=== PATIENT | female | born 1975 | race Caucasian/White ===

== ENCOUNTER 2016-04-09 11:27 | Emergency (ER) | payer OTHER ==
[2016-04-09 11:39] VITALS: BP 139/81
--- NOTE | 2016-04-09 12:22 | ERNOTE ---
Integumentary HPI - Narrative Date of Service: 04/09/16 - General Presenting Symptoms: abscess Time Seen by Provider: 04/09/16 12:03 Source: patient, family, RN notes reviewed Exam Limitations: no limitations - Immun/Allergies/Home Medications Immunizations: IMMUNIZATION HX Immunizations Up to Date Yes Allergies/Adverse Reactions: Allergies Allergy/AdvReac Type Severity Reaction Status Date / Time ciprofloxacin [From Cipro] Allergy Verified 04/09/16 11:43 ciprofloxacin HCl Allergy Verified 04/09/16 11:43 [From Cipro] ibuprofen Allergy Verified 04/09/16 11:43 latex Allergy Verified 04/09/16 11:43 metformin Allergy Verified 04/09/16 11:43 pantoprazole sodium Allergy Verified 04/09/16 11:43 [From Protonix] Penicillins Allergy Verified 04/09/16 11:43 Sulfa (Sulfonamide Allergy Verified 04/09/16 11:43 Antibiotics) Home Medications: HOME MEDICATIONS Albuterol Sulfate [Albuterol Sulfate 0.63 MG/3ML] 0.63 mg IH 04/09/16 [Last Taken Unknown] Amitriptyline HCl [Elavil] 25 mg PO HS 04/09/16 [Last Taken Unknown] Budesonide/Formoterol Fumarate [Symbicort 80-4.5 Mcg Inhaler] 1 puff IH DAILY [Last Taken Unknown] Gabapentin [Gralise] 600 mg PO 04/09/16 [Last Taken Unknown] Hydrochlorothiazide [Hydrodiuril] 25 mg PO DAILY 04/09/16 [Last Taken Unknown] Insulin Glargine,Hum.rec.anlog [Lantus] 30 units SC HS 04/09/16 [Last Taken Unknown] Oxycodone HCl/Acetaminophen [Percocet 5-325 mg Tablet] 1 each PO 04/09/16 [Last Taken Unknown] Potassium Chloride [Klor-Con Sprinkle] 10 meq PO DAILY 04/09/16 [Last Taken Unknown] Pregabalin [Lyrica] 75 mg PO BID 04/09/16 [Last Taken Unknown] Venlafaxine HCl [Effexor Xr] 75 mg PO 04/09/16 [Last Taken Unknown] traZODone HCL [Desyrel] 50 mg PO HS PRN 04/09/16 [Last Taken Unknown] - History of Present Illness Narrative: Laquita is a 41-year-old female that presents to the emergency Department by private vehicle for a wound to the dorsum of her right hand that she believes is an abscess. She reports falling several days ago and then noticing the wound the next day. She is concerned that it is becoming infected. She has been cleaning it every day with peroxide. She denies any fever or chills. She does have a history of MRSA. Review of Systems - Review of Systems Constitutional: Absent: fever, chills, malaise EYE: Present: no symptoms reported ENT: Present: no symptoms reported Respiratory: Present: no symptoms reported Cardiology: Present: no symptoms reported Gastrointestinal/Abdominal: Absent: nausea, vomiting Genitourinary: Present: no symptoms reported Musculoskeletal: Absent: joint pain, joint swelling Skin: Present: lesions, change in color. Absent: lumps Neurological: Absent: weakness, numbness, tingling Endocrine: Present: no symptoms reported Hematologic/Lymphatic: Present: no symptoms reported Psych: Present: no symptoms reported - Patient's Past Medical History Patient History - Medical: Anxiety, Chronic Pain, Diabetes Type 2, Depression, GERD, Seizures Patient History - Cardiac/Respiratory: Asthma, COPD, Hypertension, Myocardial Infarction Patient History - Cancer: No Hx of Cancer Patient History - Surgical Procedures: Appendectomy, Cholecystectomy, Hysterectomy, Tubal Ligation, Other - Social History Smoking Status: Current every day smoker Cigarettes Packs Per Day: 1 Have you smoked in the past 12 months: Yes - Immunizations Immunizations Up to Date: Yes Physical Exam - Physical Exam General Appearance: Present: wd/wn, alert, no apparent distress Eye Exam: Normal inspection: bilateral Respiratory: Present: no respiratory distress, normal breath sounds, no accessory muscle use, lungs clear Cardiovascular/Chest: Present: regular rate, rhythm, no murmur, normal peripheral pulses Extremity Exam: Present: no edema, normal range of motion. Absent: joint redness, joint swelling Neurological Exam: Present: alert, oriented, normal mood/affect, no motor/ sensory deficits Skin Exam: Present: normal color, warm/dry, other - small round wound to dorsum of right hand, 0.5 cm diamater with mild surrounding erythema and tenderness ED Progress - Vital Signs Patient's Vital Signs:: I have reviewed the patient's vital signs. Vital Signs: Vital Signs 04/09/16 11:35 Temperature 36.3 C L Pulse Rate 63 Respiratory 14 Rate Blood Pressure 139/81 O2 Sat by Pulse 99 Oximetry - Progress/Reassessment Chief Complaint: Abscess Progress:: Unchanged Departure Clinical Impression: Abrasion of hand with infection Qualifiers: Encounter type: initial encounter Laterality: right Qualified Code(s): S60.511A - Abrasion of right hand, initial encounter; L08.9 - Local infection of the skin and subcutaneous tissue, unspecified - Departure Disposition: Home self-care Condition: Good Additional Instructions: Keep wound clean - use soap and water Do not use peroxide Apply antibiotic ointment and band aid at least twice a day Return for worsening redness or fever
== END 2016-04-09 12:18 | disposition home or self-care (01) ==
LOC: ER 11:27
DX: S60.511A Abrasion of right hand, initial encounter (principal); L08.9 Local infection of the skin and subcutaneous tissue, unspecified; F17.210 Nicotine dependence, cigarettes, uncomplicated; Z90.49 Acquired absence of other specified parts of digestive tract; Z90.710 Acquired absence of both cervix and uterus; E11.9 Type 2 diabetes mellitus without complications; Z79.4 Long term (current) use of insulin; F32.9 Major depressive disorder, single episode, unspecified; F41.1 Generalized anxiety disorder; J44.9 Chronic obstructive pulmonary disease, unspecified; W19.XXXA Unspecified fall, initial encounter

== ENCOUNTER 2016-04-20 09:11 | Observation (INO) | payer OTHER ==
[2016-04-20] MEDS ORDERED: ASPIRIN 81 MG TAB.CHEW ONE (09:21)
[2016-04-20] MEDS ORDERED: ASPIRIN 81 MG TAB.CHEW PO ONE (09:23)
[2016-04-20] MEDS: NITROGLYCERIN 0.4 MG/TAB BTL SL PRN ×2 (09:25→09:47)
[2016-04-20 09:48] LABS: Hemoglobin 12.5 gm/dL (12.5-16.0); Mean Cell Volume 87.6 fl (78-100); Mean Corpuscular Hemoglobin 28.8 pg (27-31); Mean Corpuscular Hgb Conc 32.9 g/dl (32-36); Mean Platelet Volume 9.8 fl (6.0-9.5); Neutrophil # 4.3 K/mm3 (1.3-6.0); Neutrophil % 54.5 % (42-75.0); Platelet Count 285 K/mm3 (150-450); Red Blood Count 4.34 M/mm3 (4.2-5.4); Red Cell Distribution Width 12.2 % (11.5-14.0); White Blood Count 7.9 K/mm3 (4.0-10.5)
[2016-04-20 10:03] LABS: INR 0.96 INR (0.90-1.10); Partial Thrombolplastin Time 25.9 Seconds (24-32)
[2016-04-20] MEDS ORDERED: MORPHINE SULFATE 4 MG/ML SYRG IV ONE ×2 (10:03→13:03)
[2016-04-20] MEDS ORDERED: MORPHINE SULFATE 4 MG/ML SYRG ONE ×2 (10:04→13:33)
[2016-04-20 10:06] LABS: ALT 27 U/L (19-67); AST 17 U/L (0-48); Albumin * 3.1 gm/dl (3.4-5.0); Alkaline Phosphatase * 120 U/L (50-170); Anion Gap 10.8 mmol/L (6.8-13.8); BUN/Creatinine Ratio 18.6 (9.0-21.6); Bilirubin, Total 0.2 mg/dL (0.0-1.1); Blood Urea Nitrogen 13 mg/dL (3-23); Ca. Corrected For Albumin 9.2 mg/dL (8.4-10.2); Calcium * 8.8 mg/dL (7.9-10.9); Carbon Dioxide 26.8 mmol/L (24-32.6); Chloride 105 mmol/L (97-106); Glucose * 95 mg/dL (70-110); Potassium 3.6 mmol/L (3.4-4.6); Sodium 139 mmol/L (132-142); Total Protein 7.2 gm/dL (6.2-8.2); Troponin I Less than 0.017 ng/ml (0.00-0.10)
[2016-04-20] MEDS ORDERED: ENOXAPARIN SODIUM 100 MG/ML SYRG SC ONE ×2 (12:35→12:39)
[2016-04-20] MEDS ORDERED: ENOXAPARIN SODIUM 30 MG/0.3 ML SYRG SC ONE (12:39)
--- NOTE | 2016-04-20 13:07 | ERNOTE ---
Chest Pain/Cardiac HPI Date of Service: 04/20/16 Chief Complaint: Chest Pain Time Seen by Provider: 04/20/16 09:25 Source: patient Exam Limitations: no limitations Immunizations: IMMUNIZATION HX Immunizations Up to Date Yes History of Influenza Vaccine No Hx Pneumococcal Vaccination No Allergies/Adverse Reactions: Allergies Influenza Virus Vaccines Allergy (Intermediate, Verified 04/20/16 09:22) Hives ciprofloxacin [From Cipro] Allergy (Verified 04/20/16 09:22) ciprofloxacin HCl [From Cipro] Allergy (Verified 04/20/16 09:22) ibuprofen Allergy (Verified 04/20/16 09:22) latex Allergy (Verified 04/20/16 09:22) metformin Allergy (Verified 04/20/16 09:22) pantoprazole sodium [From Protonix] Allergy (Verified 04/20/16 09:22) Penicillins Allergy (Verified 04/20/16 09:22) Sulfa (Sulfonamide Antibiotics) Allergy (Verified 04/20/16 09:22) Home Medications: HOME MEDICATIONS Albuterol Sulfate [Albuterol Sulfate 0.63 MG/3ML] 0.63 mg IH Q4H 04/09/16 [Last Taken Unknown] Amitriptyline HCl [Elavil] 25 mg PO HS 04/09/16 [Last Taken Unknown] Budesonide/Formoterol Fumarate [Symbicort 80-4.5 Mcg Inhaler] 1 puff IH DAILY [Last Taken Unknown] Gabapentin [Gralise] 600 mg PO 04/09/16 [Last Taken Unknown] Hydrochlorothiazide [Hydrodiuril] 25 mg PO DAILY 04/09/16 [Last Taken Unknown] Insulin Glargine,Hum.rec.anlog [Lantus] 30 units SC HS 04/09/16 [Last Taken Unknown] Potassium Chloride [Klor-Con Sprinkle] 10 meq PO DAILY 04/09/16 [Last Taken Unknown] Pregabalin [Lyrica] 75 mg PO BID 04/09/16 [Last Taken Unknown] Venlafaxine HCl [Effexor Xr] 75 mg PO DAILY 04/09/16 [Last Taken Unknown] traZODone HCL [Desyrel] 50 mg PO HS PRN 04/09/16 [Last Taken Unknown] Famotidine [Pepcid] 40 mg PO DAILY 04/20/16 [Last Taken Unknown] Narrative: Patient presents to the ED with chest pain. She states that at 3am she had acute onset pleuritic chest pain central and into her left back. Never had anything exactly like this before. No trauma. By report had angiogram, cardiac in [place] recently for CP but not sure what it showed. No vomiting. No cough or recent URI. Has not seen anyone else for this. Pain can be severe. No abdominal pain. Timing: constant Severity/Quality: severe, sharp Location: substernal, back, left chest Chest Pain Radiation: back Activities at Onset: none Modifying Factors - Improves: Present: nothing Modifying Factors - Worsens: Present: breathing Nitro Today/Relief: no nitro taken today Associated Symptoms: Absent: headache, cough, diaphoresis, fever/chills, palpitations, vomiting, abdominal pain Prior Treatment: Denies: recently seen Review of Systems - Review of Systems Constitutional: Absent: fever ENT: Present: no symptoms reported Respiratory: Absent: cough Cardiology: Present: chest pain Gastrointestinal/Abdominal: Absent: abdominal pain All Other Systems: All systems neg except as marked - Patient's Past Medical History Patient History - Medical: Anxiety, Chronic Pain, Diabetes Type 2, Depression, GERD, Seizures Patient History - Cardiac/Respiratory: Asthma, COPD, Hypertension, Myocardial Infarction Patient History - Cancer: No Hx of Cancer Patient History - Surgical Procedures: Appendectomy, Cholecystectomy, Hysterectomy, Tubal Ligation, Other - Social History Living Situations: home Abuse History: No History of abuse Smoking Status: Never smoker Have you smoked in the past 12 months: No Drug Use: none - Immunizations Immunizations Up to Date: Yes Hx Pneumococcal Vaccination: No History of Influenza Vaccine: No Physical Exam - Physical Exam General Appearance: Present: alert, no apparent distress Eye Exam: Normal inspection: bilateral, PERRL: bilateral Ears, Nose, Throat: Present: normal ENT inspection Neck: Present: normal inspection Respiratory: Present: no respiratory distress, normal breath sounds, no accessory muscle use, lungs clear. Absent: chest tenderness Cardiovascular/Chest: Present: regular rate, rhythm, no murmur, normal peripheral pulses Gastrointestinal/Abdominal: Present: normal bowel sounds, nontender, soft Back Exam: Absent: CVA tenderness (R), CVA tenderness (L) Extremity Exam: Present: normal inspection, no edema Neurological Exam: Present: alert, normal mood/affect, no motor/sensory deficits , receiving room clerk II-XII nml as tested Skin Exam: Present: normal color, warm/dry. Absent: skin rash ED Progress - Results and Orders Patient's Lab Results:: I have reviewed the patient's lab results. - Vital Signs Patient's Vital Signs:: I have reviewed the patient's vital signs. Vital Signs: Vital Signs 04/20/16 04/20/16 04/20/16 09:16 09:30 09:45 Temperature 36.0 C L Pulse Rate 93 71 64 Respiratory 20 14 12 Rate Blood Pressure 195/82 131/75 135/80 O2 Sat by Pulse 100 98 96 Oximetry 04/20/16 09:55 Temperature Pulse Rate 63 Respiratory Rate Blood Pressure O2 Sat by Pulse Oximetry - EKG EKG read: Reviewed by me EKG Comments: NSR rate 62. No STEMI. No acute changes noted. - X-Ray X-Ray #1 X-Ray: chest Interpretation: Reviewed by me X-ray Comments: I reviewed official radiology report - CT/Ultrasound CT/Ultrasound Narrative: D/W Radiology, I reviewed official CT report. Positive for PE. - Progress/Reassessment Chief Complaint: Chest Pain Progress Note-Subjective: 04/20/16 13:06 Lovenox given. i discussed the case with Dr Tee who will admit the patient. Patient currently medically stable. Departure - Departure Clinical Impression: Chest pain, Pulmonary embolism Disposition: [facility] Condition: Stable
[2016-04-20] MEDS ORDERED: WARFARIN SODIUM 10 MG TABLET PO ONE (17:24)
[2016-04-20] MEDS ORDERED: ALBUTEROL SULFATE 2.5 MG/0.5 ML VIAL.NEB IH PRN ×2 (17:25→17:36)
[2016-04-20] MEDS ORDERED: traZODone HCL 50 MG TABLET PO PRN (17:25)
--- NOTE | 2016-04-20 18:14 | HP ---
Chief Complaint - Chief Complaint Date of Service: 04/20/16 Time of Service: 17:58 Chief Complaint: Chest pain History of Present Illness: Laquita is a 41 yo female that presented to the [facility] ER with sudden onset of chest pain that began at 0300 this morning. Pain worse with motion and breathing. In the ER her d-dimer was elevated and a chest CT was performed showing pulmonary embolism. She reports daily tobacco use, family history of blood clot in her mother and maternal grandmother, and a recent 18 hour car trip from [place] to [place]. She reports that she had noticed calf pain during the car trip but thought it was muscle tightness. She reports she has never had blood clots and is not on control. - Patient's Past Medical History Patient History - Medical: Anxiety, Chronic Pain, Diabetes Type 2, Depression, GERD, Seizures Patient History - Cardiac/Respiratory: Asthma, COPD, Hypertension, Myocardial Infarction Patient History - Cancer: Cervical Patient History - Surgical Procedures: Appendectomy, Cholecystectomy, Hysterectomy, Tubal Ligation - Family History Mother Family History - Cardiac/Respiratory: Deep Vein Thrombosis, Myocardial Infarction Family History - Cancer: Breast Grandmother-Maternal Family History - Cardiac/Respiratory: Deep Vein Thrombosis - Social History Living Situations: parents Abuse History: No History of abuse Smoking Status: Current every day smoker Have you smoked in the past 12 months: Yes Alcohol Use: none Drug Use: none - Immunizations Immunizations Up to Date: Yes Hx Pneumococcal Vaccination: No History of Influenza Vaccine: No Review Of Systems (GEN) - Review of Systems Generalized/Overall Review: Absent: Weakness, Chills, Fever EENTM: Present: No Symptoms Reported Respiratory: Present: Shortness of Breath. Absent: Cough Cardiac: Present: Chest Pain. Absent: Edema, Palpitations, Syncope Abdominal: Present: No Symptoms Reported Genitourinary: Present: No Symptoms Reported Musculoskeletal: Present: No Symptoms Reported Neurological: Present: No Symptoms Reported Skin: Present: No Symptoms Reported Immunizations: IMMUNIZATION HX Immunizations Up to Date Yes History of Influenza Vaccine No Hx Pneumococcal Vaccination No Allergies/Adverse Reactions: Allergies Allergy/AdvReac Type Severity Reaction Status Date / Time Influenza Virus Vaccines Allergy Intermediate Hives Verified 04/20/16 09:22 ciprofloxacin [From Cipro] Allergy Verified 04/20/16 09:22 ciprofloxacin HCl Allergy Verified 04/20/16 09:22 [From Cipro] ibuprofen Allergy Verified 04/20/16 09:22 latex Allergy Verified 04/20/16 09:22 metformin Allergy Verified 04/20/16 09:22 pantoprazole sodium Allergy Verified 04/20/16 09:22 [From Protonix] Penicillins Allergy Verified 04/20/16 09:22 Sulfa (Sulfonamide Allergy Verified 04/20/16 09:22 Antibiotics) Home Medications: HOME MEDICATIONS Albuterol Sulfate [Albuterol Sulfate 0.63 MG/3ML] 0.63 mg IH Q4H 04/09/16 [Last Taken Unknown] Amitriptyline HCl [Elavil] 25 mg PO HS 04/09/16 [Last Taken Unknown] Budesonide/Formoterol Fumarate [Symbicort 80-4.5 Mcg Inhaler] 1 puff IH DAILY [Last Taken Unknown] Gabapentin [Gralise] 600 mg PO DAILY 04/09/16 [Last Taken Unknown] Hydrochlorothiazide [Hydrodiuril] 25 mg PO DAILY 04/09/16 [Last Taken Unknown] Insulin Glargine,Hum.rec.anlog [Lantus] 30 units SC HS 04/09/16 [Last Taken Unknown] Potassium Chloride [Klor-Con Sprinkle] 10 meq PO DAILY 04/09/16 [Last Taken Unknown] Pregabalin [Lyrica] 75 mg PO BID 04/09/16 [Last Taken Unknown] Venlafaxine HCl [Effexor Xr] 75 mg PO DAILY 04/09/16 [Last Taken Unknown] traZODone HCL [Desyrel] 50 mg PO HS PRN 04/09/16 [Last Taken Unknown] Famotidine [Pepcid] 40 mg PO DAILY 04/20/16 [Last Taken Unknown] Exam - Exam Vital Signs: Vital Signs - Last Taken Temp 36.6 C 04/20/16 14:21 Pulse 56 L 04/20/16 14:21 Resp 18 04/20/16 14:21 BP 154/90 04/20/16 14:21 Pulse Ox 100 04/20/16 14:21 Constitutional: Present: Alert, Oriented x3, Cooperative ENT Exam: Present: hearing grossly normal Eye Exam: bilateral eye: normal inspection Respiratory: Present: lungs clear, normal breath sounds, other - Chest wall pain to palpation Cardiovascular/Chest: Present: regular rate, rhythm, no murmur Abdomen: Present: Normal bowel sounds, soft, nontender, nondistended, no hepatospenomegaly Extremity: Present: normal inspection Skin Exam: Present: normal color, warm/dry, no cyanosis Diagnostic Studies: Laboratory Results WBC 7.9 K/mm3 (4.0-10.5) 04/20/16 09:45 RBC 4.34 M/mm3 (4.2-5.4) 04/20/16 09:45 Hgb 12.5 gm/dL (12.5-16.0) 04/20/16 09:45 Hct 38.0 % (37.0-47.0) 04/20/16 09:45 MCV 87.6 fl (78-100) 04/20/16 09:45 MCH 28.8 pg (27-31) 04/20/16 09:45 MCHC 32.9 g/dl (32-36) 04/20/16 09:45 RDW 12.2 % (11.5-14.0) 04/20/16 09:45 Plt Count 285 K/mm3 (150-450) 04/20/16 09:45 MPV 9.8 fl (6.0-9.5) H 04/20/16 09:45 Immature Gran % (Auto) 0.40 % (0.001-0.429) 04/20/16 09:45 Immature Gran # (Auto) 0.03 K/mm3 (0.000-0.0310) 04/20/16 09:45 Neutrophils % 54.5 % (42-75.0) 04/20/16 09:45 Lymphocytes % 33.5 % (20-51) 04/20/16 09:45 Monocytes % 8.5 % (0.0-9) 04/20/16 09:45 Eosinophils % 2.7 % (0.0-3.0) 04/20/16 09:45 Basophils % 0.4 % (0.0-1.0) 04/20/16 09:45 Nucleated RBC % 0.0 k/mm3 (0-1) 04/20/16 09:45 Neutrophils # 4.3 K/mm3 (1.3-6.0) 04/20/16 09:45 Lymphocytes # 2.6 k/mm3 (1.5-3.5) 04/20/16 09:45 Monocytes # 0.7 k/mm3 (0.0-1.0) 04/20/16 09:45 Eosinophils # 0.2 k/mm3 (0.0-0.7) 04/20/16 09:45 Absolute Basophils 0.0 k/mm3 (0.0-0.1) 04/20/16 09:45 PT 10.0 Seconds (9.4-11.4) 04/20/16 09:45 INR (Anticoag Therapy) 0.96 INR (0.90-1.10) 04/20/16 09:45 PTT (Conor) 25.9 Seconds (24-32) 04/20/16 09:45 D-Dimer 0.51 mg/L (0.19-0.49) H 04/20/16 09:45 Sodium 139 mmol/L (132-142) 04/20/16 09:45 Plasma Sodium 139 mmol/L (130-142) 04/20/16 09:45 Potassium 3.6 mmol/L (3.4-4.6) 04/20/16 09:45 Chloride 105 mmol/L (97-106) 04/20/16 09:45 Carbon Dioxide 26.8 mmol/L (24-32.6) 04/20/16 09:45 Anion Gap 10.8 mmol/L (6.8-13.8) 04/20/16 09:45 BUN 13 mg/dL (3-23) 04/20/16 09:45 Creatinine 0.70 mg/dL (0.4-1.4) 04/20/16 09:45 Est GFR (Non-Af Amer) 98 mL/min (60-130) 04/20/16 09:45 BUN/Creatinine Ratio 18.6 (9.0-21.6) 04/20/16 09:45 Random Glucose 95 mg/dL (70-110) 04/20/16 09:45 Calcium 8.8 mg/dL (7.9-10.9) 04/20/16 09:45 Calcium Adj for Albumin 9.2 mg/dL (8.4-10.2) 04/20/16 09:45 Total Bilirubin 0.2 mg/dL (0.0-1.1) 04/20/16 09:45 AST 17 U/L (0-48) 04/20/16 09:45 ALT 27 U/L (19-67) 04/20/16 09:45 Alkaline Phosphatase 120 U/L (50-170) 04/20/16 09:45 Troponin I Less than 0.017 ng/ml (0.00-0.10) 04/20/16 15:50 Total Protein 7.2 gm/dL (6.2-8.2) 04/20/16 09:45 Albumin 3.1 gm/dl (3.4-5.0) L 04/20/16 09:45 Assessment/Plan - Assessment/Plan (1) Pulmonary embolism Assessment: Laquita is a 41 yo female admitted to observation with acute PE. She is hemodynamically stable and without hypoxia. Will admit to observation to monitor oxygen status and start treatment. Will start Lovenox 120mg SC BID and Coumadin 10mg once tonight and 5 mg daily starting tomorrow. Will need at least 5 days of lovenox and continued as long as it takes to get INR >2. Laquita is without insurance and this limits medication choices as the new anticoagulation medications would be too expensive. Lovenox is also fairly expensive and so I may consider starting Eliquis (which there are coupons available for a reduced first month supply) and then transition to coumadin once INR is >2. Expect 1 midnight stay to monitor oxygen status and initiate medications. Problem: Acute Qualifiers: Pulmonary embolism type: other Chronicity: acute Acute cor pulmonale presence: without acute cor pulmonale Qualified Code(s): I26.99 - Other pulmonary embolism without acute cor pulmonale
[2016-04-20] MEDS: oxyCODONE HCL/ACETAMINOPHEN 1 TAB TABLET PO PRN (18:26)
[2016-04-20] MEDS ORDERED: AMITRIPTYLINE HCL 25 MG TABLET PO SCH (21:00)
[2016-04-20] MEDS ORDERED: INSULIN GLARGINE,HUM.REC.ANLOG 100 UNITS/ML VIAL SC SCH (21:00)
[2016-04-20] MEDS: FLUTICASONE/SALMETEROL 14 PUFF DISK.W.DEV IH SCH (21:31)
[2016-04-20] MEDS: PREGABALIN 75 MG CAPSULE PO SCH (21:36)
[2016-04-21] MEDS: ENOXAPARIN SODIUM 60 MG/0.6 ML SYRG SC SCH ×2 (00:03→10:34)
[2016-04-21] MEDS: oxyCODONE HCL/ACETAMINOPHEN 1 TAB TABLET PO PRN ×4 (00:12→13:21)
[2016-04-21 06:22] LABS: Hematocrit 34.6 % (37.0-47.0); Hemoglobin 11.5 gm/dL (12.5-16.0); Mean Cell Volume 86.3 fl (78-100); Mean Corpuscular Hemoglobin 28.7 pg (27-31); Mean Corpuscular Hgb Conc 33.2 g/dl (32-36); Mean Platelet Volume 9.3 fl (6.0-9.5); Neutrophil # 3.2 K/mm3 (1.3-6.0); Neutrophil % 41.2 % (42-75.0); Platelet Count 290 K/mm3 (150-450); Red Blood Count 4.01 M/mm3 (4.2-5.4); Red Cell Distribution Width 12.3 % (11.5-14.0); White Blood Count 7.8 K/mm3 (4.0-10.5)
[2016-04-21 06:31] LABS: INR 0.99 INR (0.90-1.10); Prothrombin Time (Patient) 10.3 Seconds (9.4-11.4)
[2016-04-21 06:36] LABS: Albumin * 2.9 gm/dl (3.4-5.0); BUN/Creatinine Ratio 18.8 (9.0-21.6); Bilirubin, Total 0.2 mg/dL (0.0-1.1); Ca. Corrected For Albumin 9.1 mg/dL (8.4-10.2); Calcium * 8.5 mg/dL (7.9-10.9); Carbon Dioxide 25.8 mmol/L (24-32.6); Potassium 3.8 mmol/L (3.4-4.6); Total Protein 6.7 gm/dL (6.2-8.2)
[2016-04-21] MEDS ORDERED: VENLAFAXINE HCL 37.5 MG CAP.SR.24H PO SCH (09:00)
[2016-04-21] MEDS ORDERED: FAMOTIDINE 20 MG TABLET PO SCH (09:00)
[2016-04-21] MEDS ORDERED: HYDROCHLOROTHIAZIDE 25 MG TABLET PO SCH (09:00)
[2016-04-21] MEDS ORDERED: POTASSIUM CHLORIDE 10 MEQ TABLET.SA PO SCH (09:00)
[2016-04-21] MEDS: FLUTICASONE/SALMETEROL 14 PUFF DISK.W.DEV IH SCH (09:02)
[2016-04-21] MEDS: PREGABALIN 75 MG CAPSULE PO SCH (09:11)
[2016-04-21] MEDS: NITROGLYCERIN 0.4 MG/TAB BTL SL PRN ×2 (13:21→13:50)
[2016-04-21 14:26] VITALS: BP 104/55
[2016-04-21] MEDS ORDERED: KETOROLAC TROMETHAMINE 30 MG/ML VIAL IV ONE (14:36)
[2016-04-21] MEDS ORDERED: KETOROLAC TROMETHAMINE 30 MG/ML VIAL ONE (14:38)
[2016-04-21] MEDS ORDERED: WARFARIN SODIUM 5 MG TABLET PO SCH (17:00)
--- NOTE | 2016-04-21 17:05 | DS ---
(1) Pulmonary embolism Diagnosis(s): Laquita is a 41 yo female that was admitted with pulmonary embolism. She has risk factors of tobacco abuse and recent long distance traveling in a car. CT showed peripheral pulmonary embolism. She was started on Lovenox. She was medically stable without hypoxia. Due to lack of insurance it would be too costly for her to get INR checks and she does not have money for prescription medication. Were able to get a month free prescription for xarelto. She will follow up in clinic in a couple weeks and once she gets insurance will see what medications are covered. Problem: Acute Qualifiers: Pulmonary embolism type: other Chronicity: acute Acute cor pulmonale presence: without acute cor pulmonale Qualified Code(s): I26.99 - Other pulmonary embolism without acute cor pulmonale Procedures Performed: none Discharge Disposition: Home self care Disposition: Home self-care Condition: Stable Discharge Activity: Activity as tolerated Discharge Diet: General/regular food Problem Oriented Discharge Instructions to Patient/Family: Pulmonary Embolism Complete Home Medications List: Complete Home Medication List: Albuterol Sulfate [Albuterol Sulfate 0.63 MG/3ML] 0.63 mg IH Q4H 04/09/16 Amitriptyline HCl [Elavil] 25 mg PO HS 04/09/16 Budesonide/Formoterol Fumarate [Symbicort 80-4.5 Mcg Inhaler] 1 puff IH DAILY Gabapentin [Gralise] 600 mg PO DAILY 04/09/16 Hydrochlorothiazide [Hydrodiuril] 25 mg PO DAILY 04/09/16 Insulin Glargine,Hum.rec.anlog [Lantus] 30 units SC HS 04/09/16 Pregabalin [Lyrica] 75 mg PO BID 04/09/16 Venlafaxine HCl [Effexor Xr] 75 mg PO DAILY 04/09/16 traZODone HCL [Desyrel] 50 mg PO HS PRN 04/09/16 Famotidine [Pepcid] 40 mg PO DAILY 04/20/16 Potassium 99 mg PO DAILY 05/13/16 Promethazine HCl [Phenergan Suppository] 25 mg RC Q6H PRN #20 supp.rect Rivaroxaban [Xarelto] 15 mg PO BID 05/13/16
== END 2016-04-21 18:01 | disposition home or self-care (01) ==
LOC: ER 09:11 → MS 12:42
PROVIDERS: ADMIT Family Medicine; ATTEND Family Medicine
DX: I26.99 Other pulmonary embolism without acute cor pulmonale (principal); E11.9 Type 2 diabetes mellitus without complications; G89.4 Chronic pain syndrome; I10 Essential (primary) hypertension; F17.210 Nicotine dependence, cigarettes, uncomplicated; J44.9 Chronic obstructive pulmonary disease, unspecified
CPT/HCPCS: 36415; 71020; 71275; 80053; 84484; 85025; 85379; 85610; 85730; 87081; 93005; 96372; 96374; 99284; G0378

== ENCOUNTER 2016-04-24 10:02 | Emergency (ER) | payer OTHER ==
--- NOTE | 2016-04-24 10:30 | ERNOTE ---
Medical Problem HPI - Narrative Date of Service: 04/24/16 - General Time Seen by Provider: 04/24/16 10:09 Source: patient Exam Limitations: no limitations - Immun/Allergies/Home Medications Immunizations: IMMUNIZATION HX Immunizations Up to Date Yes History of Influenza Vaccine No Hx Pneumococcal Vaccination No Allergies/Adverse Reactions: Allergies Influenza Virus Vaccines Allergy (Intermediate, Verified 04/24/16 10:10) Hives ciprofloxacin [From Cipro] Allergy (Verified 04/24/16 10:10) ciprofloxacin HCl [From Cipro] Allergy (Verified 04/24/16 10:10) ibuprofen Allergy (Verified 04/24/16 10:10) latex Allergy (Verified 04/24/16 10:10) metformin Allergy (Verified 04/24/16 10:10) pantoprazole sodium [From Protonix] Allergy (Verified 04/24/16 10:10) Penicillins Allergy (Verified 04/24/16 10:10) Sulfa (Sulfonamide Antibiotics) Allergy (Verified 04/24/16 10:10) Home Medications: HOME MEDICATIONS Albuterol Sulfate [Albuterol Sulfate 0.63 MG/3ML] 0.63 mg IH Q4H 04/09/16 [Last Taken Unknown] Amitriptyline HCl [Elavil] 25 mg PO HS 04/09/16 [Last Taken Unknown] Budesonide/Formoterol Fumarate [Symbicort 80-4.5 Mcg Inhaler] 1 puff IH DAILY [Last Taken Unknown] Gabapentin [Gralise] 600 mg PO DAILY 04/09/16 [Last Taken Unknown] Hydrochlorothiazide [Hydrodiuril] 25 mg PO DAILY 04/09/16 [Last Taken Unknown] Insulin Glargine,Hum.rec.anlog [Lantus] 30 units SC HS 04/09/16 [Last Taken Unknown] Potassium Chloride [Klor-Con Sprinkle] 10 meq PO DAILY 04/09/16 [Last Taken Unknown] Pregabalin [Lyrica] 75 mg PO BID 04/09/16 [Last Taken Unknown] Venlafaxine HCl [Effexor Xr] 75 mg PO DAILY 04/09/16 [Last Taken Unknown] traZODone HCL [Desyrel] 50 mg PO HS PRN 04/09/16 [Last Taken Unknown] Famotidine [Pepcid] 40 mg PO DAILY 04/20/16 [Last Taken Unknown] Rivaroxaban [Xarelto] 15 mg PO BID #60 tab 04/21/16 [Last Taken Unknown] oxyCODONE HCL/ACETAMINOPHEN [Percocet 5 MG/325 MG] 2 tab PO Q6H PRN #90 tablet 04/21/16 [Last Taken Unknown] Nystatin [Mycostatin Ointment] 1 appl TP TID #15 gm 04/24/16 [Last Taken Unknown ] - History of Present History Narrative: Pt. comes in with c/o drainage from her umbilicus, chest pain, increased dyspnea , and bruising on her LLQ of her abdomen. Pt. has a week long hx of PE treated with Lovenox and states that she feels worse than when she was first diagnosed. All of the symptoms have developed gradually since discharge from the hospital except the drainage from her umbilicus was first noted days ago. Pt. states that opening a window helps with the dysnea but nothing alleviates it. Pt. denies any alleviating or aggravating factors for carolee other symptoms Review of Systems - Review of Systems Constitutional: Present: no symptoms reported. Absent: fever, chills, diaphoresis, malaise, weight loss EYE: Present: no symptoms reported ENT: Present: no symptoms reported Respiratory: Present: shortness of breath, cough. Absent: wheezing Cardiology: Present: chest pain. Absent: palpitations, syncope, edema Gastrointestinal/Abdominal: Present: abdominal pain, other - umbilical drainage Genitourinary: Present: no symptoms reported Musculoskeletal: Present: no symptoms reported. Absent: back pain, neck pain Skin: Present: no symptoms reported Neurological: Present: no symptoms reported All Other Systems: All systems neg except as marked - Patient's Past Medical History Patient History - Medical: Anxiety, Chronic Pain, Diabetes Type 2, Depression, GERD, Seizures Patient History - Cardiac/Respiratory: Asthma, COPD, Hypertension, Myocardial Infarction Patient History - Cancer: Cervical Patient History - Surgical Procedures: Appendectomy, Cholecystectomy, Hysterectomy, Tubal Ligation - Family History Mother Family History - Cardiac/Respiratory: Deep Vein Thrombosis, Myocardial Infarction Family History - Cancer: Breast Grandmother-Maternal Family History - Cardiac/Respiratory: Deep Vein Thrombosis - Social History Living Situations: parents Abuse History: No History of abuse Smoking Status: Former smoker Alcohol Use: none Drug Use: none - Immunizations Immunizations Up to Date: Yes Hx Pneumococcal Vaccination: No History of Influenza Vaccine: No Physical Exam - Physical Exam General Appearance: Present: wd/wn, alert, no apparent distress Eye Exam: Normal inspection: bilateral, PERRL: bilateral, EOMI: bilateral Ears, Nose, Throat: Present: normal ENT inspection, hearing grossly normal, normal pharynx Neck: Present: normal inspection, nontender. Absent: lymphadenopathy (R), lymphadenopathy (L) Respiratory: Present: respiratory distress, accessory muscle use - tripodding, crackles - bases Cardiovascular/Chest: Present: regular rate, rhythm, no murmur, normal peripheral pulses Gastrointestinal/Abdominal: Present: normal bowel sounds, nontender, nondistended, soft, no organomegaly Back Exam: Present: normal inspection, normal range of motion, no CVA tenderness , no vertebral tenderness Extremity Exam: Present: normal inspection, non-tender, no edema, normal range of motion Neurological Exam: Present: alert, oriented, normal mood/affect, no motor/ sensory deficits Skin Exam: Present: normal color, warm/dry, other - fungal drainage from umbilicus at base no open area. Absent: pallor, skin rash ED Progress - Date and Time Seen: Date and Time: 04/24/16 12:[address] Tee and he recommends attempting breathing treatment with pt. and having her follow up as an outpatient in clinic as her vital signs are stable and her AST and ALT aren't elevated enough to warrant change to other medication as pt. is unable to afford any other medication for this PE. 04/24/16 13:00 Pt. denies any relief from breathing treatment pt. to see Dr Tee tomorrow am at 0830. - Results and Orders Patient's Lab Results:: I have reviewed the patient's lab results. Results and Orders: Pt. with subtheraputic response to coumadin and lovenox - Vital Signs Patient's Vital Signs:: I have reviewed the patient's vital signs. Vital Signs: Vital Signs 04/24/16 10:06 Temperature 36 C L Pulse Rate 69 Respiratory 16 Rate Blood Pressure 180/99 O2 Sat by Pulse 100 Oximetry - EKG EKG: other - Sinus addison, no LVH or LAE EKG read: Interp. by me - CT/Ultrasound CT/Ultrasound Narrative: CT chest without interval change in PE or new findings. - Progress/Reassessment Progress:: Unchanged Departure - Departure Clinical Impression: Fungal infection Pulmonary embolism Qualifiers: Pulmonary embolism type: other Chronicity: acute Acute cor pulmonale presence: without acute cor pulmonale Qualified Code(s): I26.99 - Other pulmonary embolism without acute cor pulmonale Disposition: Home self-care Condition: Good Instructions: Pulmonary Embolism Additional Instructions: Please follow up with Dr Tee as scheduled tomorrow. Referrals: Luke Tee DO [Primary Care Provider] - Prescriptions: Nystatin [Mycostatin Ointment] 1 appl TP TID #15 gm
[2016-04-24 10:45] LABS: Hematocrit 39.9 % (37.0-47.0); Hemoglobin 13.2 gm/dL (12.5-16.0); Mean Cell Volume 86.6 fl (78-100); Mean Corpuscular Hemoglobin 28.6 pg (27-31); Mean Corpuscular Hgb Conc 33.1 g/dl (32-36); Mean Platelet Volume 9.4 fl (6.0-9.5); Neutrophil # 5.2 K/mm3 (1.3-6.0); Neutrophil % 56.3 % (42-75.0); Platelet Count 342 K/mm3 (150-450); Red Blood Count 4.61 M/mm3 (4.2-5.4); Red Cell Distribution Width 12.2 % (11.5-14.0); White Blood Count 9.2 K/mm3 (4.0-10.5)
[2016-04-24 10:58] LABS: INR 1.45 INR (0.90-1.10); Partial Thrombolplastin Time 42.7 Seconds (24-32); Prothrombin Time (Patient) 15.1 Seconds (9.4-11.4)
[2016-04-24 11:06] LABS: ALT 76 U/L (19-67); AST 49 U/L (0-48); Albumin * 3.4 gm/dl (3.4-5.0); Alkaline Phosphatase * 126 U/L (50-170); Anion Gap 12.7 mmol/L (6.8-13.8); BNP * 112 pg/mL (5-150); BUN/Creatinine Ratio 13.3 (9.0-21.6); Bilirubin, Total 0.2 mg/dL (0.0-1.1); Blood Urea Nitrogen 10 mg/dL (3-23); Ca. Corrected For Albumin 9.2 mg/dL (8.4-10.2); Carbon Dioxide 27.2 mmol/L (24-32.6); Chloride 104 mmol/L (97-106); Glucose * 88 mg/dL (70-110); Magnesium 1.9 mg/dL (1.2-2.8); Phosphorus 2.7 mg/dL (2.2-4.2); Potassium 3.9 mmol/L (3.4-4.6); Sodium 140 mmol/L (132-142); Total Protein 7.9 gm/dL (6.2-8.2); Troponin I Less than 0.017 ng/ml (0.00-0.10)
[2016-04-24] MEDS ORDERED: ALBUTEROL SULFATE 2.5 MG/0.5 ML VIAL.NEB IH ONE ×2 (12:28→12:37)
[2016-04-24 13:06] VITALS: BP 139/93
== END 2016-04-24 13:13 | disposition home or self-care (01) ==
LOC: ER 10:02
DX: I26.99 Other pulmonary embolism without acute cor pulmonale (principal); B36.8 Other specified superficial mycoses; R07.9 Chest pain, unspecified; R06.09 Other forms of dyspnea

== ENCOUNTER 2016-04-25 11:03 | Emergency (ER) | payer OTHER ==
[2016-04-25 11:14] VITALS: BP 152/85
[2016-04-25] MEDS ORDERED: PROMETHAZINE HCL 50 MG/ML AMPUL IM ONE ×2 (11:27→11:31)
--- NOTE | 2016-04-25 11:28 | ERNOTE ---
Medical Problem HPI - Narrative Date of Service: 04/25/16 - General Chief Complaint: Nausea/Vomiting Time Seen by Provider: 04/25/16 11:20 Source: patient, RN notes reviewed, old records Exam Limitations: other - History provided by patient does not match documentation in her chart - Immun/Allergies/Home Medications Immunizations: IMMUNIZATION HX Immunizations Up to Date Yes History of Influenza Vaccine No Hx Pneumococcal Vaccination No Allergies/Adverse Reactions: Allergies Influenza Virus Vaccines Allergy (Intermediate, Verified 04/25/16 11:13) Hives ciprofloxacin [From Cipro] Allergy (Verified 04/25/16 11:13) ciprofloxacin HCl [From Cipro] Allergy (Verified 04/25/16 11:13) ibuprofen Allergy (Verified 04/25/16 11:13) latex Allergy (Verified 04/25/16 11:13) metformin Allergy (Verified 04/25/16 11:13) pantoprazole sodium [From Protonix] Allergy (Verified 04/25/16 11:13) Penicillins Allergy (Verified 04/25/16 11:13) Sulfa (Sulfonamide Antibiotics) Allergy (Verified 04/25/16 11:13) Home Medications: HOME MEDICATIONS Albuterol Sulfate [Albuterol Sulfate 0.63 MG/3ML] 0.63 mg IH Q4H 04/09/16 [Last Taken Unknown] Amitriptyline HCl [Elavil] 25 mg PO HS 04/09/16 [Last Taken Unknown] Budesonide/Formoterol Fumarate [Symbicort 80-4.5 Mcg Inhaler] 1 puff IH DAILY [Last Taken Unknown] Gabapentin [Gralise] 600 mg PO DAILY 04/09/16 [Last Taken Unknown] Hydrochlorothiazide [Hydrodiuril] 25 mg PO DAILY 04/09/16 [Last Taken Unknown] Insulin Glargine,Hum.rec.anlog [Lantus] 30 units SC HS 04/09/16 [Last Taken Unknown] Potassium Chloride [Klor-Con Sprinkle] 10 meq PO DAILY 04/09/16 [Last Taken Unknown] Pregabalin [Lyrica] 75 mg PO BID 04/09/16 [Last Taken Unknown] Venlafaxine HCl [Effexor Xr] 75 mg PO DAILY 04/09/16 [Last Taken Unknown] traZODone HCL [Desyrel] 50 mg PO HS PRN 04/09/16 [Last Taken Unknown] Famotidine [Pepcid] 40 mg PO DAILY 04/20/16 [Last Taken Unknown] Rivaroxaban [Xarelto] 15 mg PO BID #60 tab 04/21/16 [Last Taken Unknown] oxyCODONE HCL/ACETAMINOPHEN [Percocet 5 MG/325 MG] 2 tab PO Q6H PRN #90 tablet 04/21/16 [Last Taken Unknown] Nystatin [Mycostatin Ointment] 1 appl TP TID #15 gm 04/24/16 [Last Taken Unknown ] - History of Present History Narrative: Laquita is a 41 year old female who presents to the ED for vomiting blood. She began vomiting blood at 0530 this morning. She reports being unable to tolerate any oral intake. She denies diarrhea or sick contacts. She was recently hospitalized for a PE. She was discharged on 04/21/16 and then was seen again in the ED yesterday for chest pain and shortness of breath. She is currently on Xarelto for the PE. She reports being contacted by her PCP's office this morning to change her follow up appointment time that was already scheduled for today. When she told them that she had been vomiting blood, she was directed to come here instead. Her clinic record indicates that she contacted the office due to concerns about what her visit would cost, as she does not have insurance. She also reported vomiting to the nurse, but then became disconnected. After some difficulty contacting her again, and even notifying the [employer] letter carrier, the patient called the office and reported that she was fine and the vomiting seemed to be subsiding. Date (Duration): 04/25/16 Time (Timing): 05:30 Review of Systems - Review of Systems Constitutional: Present: malaise. Absent: fever, chills EYE: Present: no symptoms reported ENT: Absent: sore throat Respiratory: Present: shortness of breath, cough Cardiology: Absent: chest pain, syncope Gastrointestinal/Abdominal: Present: nausea, vomiting, eating less, drinking less. Absent: diarrhea, constipation, abdominal pain, other - blood in stools Genitourinary: Absent: dysuria, hematuria Musculoskeletal: Present: no symptoms reported Skin: Present: lesions, change in color Neurological: Absent: headache, dizziness/light-headedness Endocrine: Present: no symptoms reported Hematologic/Lymphatic: Present: easy bruising, easy bleeding Psych: Present: no symptoms reported - Patient's Past Medical History Patient History - Medical: Anxiety, Chronic Pain, Diabetes Type 2, Depression, GERD, Seizures Patient History - Cardiac/Respiratory: Asthma, COPD, Hypertension, Myocardial Infarction, Pulmonary Embolism Patient History - Cancer: Cervical Patient History - Surgical Procedures: Appendectomy, Cholecystectomy, Hysterectomy, Tubal Ligation - Family History Mother Family History - Cardiac/Respiratory: Deep Vein Thrombosis, Myocardial Infarction Family History - Cancer: Breast Grandmother-Maternal Family History - Cardiac/Respiratory: Deep Vein Thrombosis - Social History Living Situations: parents Abuse History: No History of abuse Smoking Status: Former smoker Alcohol Use: none Drug Use: none - Immunizations Immunizations Up to Date: Yes Hx Pneumococcal Vaccination: No History of Influenza Vaccine: No Physical Exam - Physical Exam General Appearance: Present: wd/wn, alert, no apparent distress, anxious, obese Neck: Present: normal inspection, nontender, supple Respiratory: Present: no respiratory distress, normal breath sounds, no accessory muscle use, lungs clear Cardiovascular/Chest: Present: regular rate, rhythm, no murmur, normal peripheral pulses Gastrointestinal/Abdominal: Present: normal bowel sounds, nontender, nondistended, soft Neurological Exam: Present: alert, oriented, normal mood/affect, no motor/ sensory deficits Skin Exam: Present: warm/dry, other - large ecchymosis present on abdomen at site of Lovenox injections ED Progress - Results and Orders Patient's Lab Results:: I have reviewed the patient's lab results. - Vital Signs Patient's Vital Signs:: I have reviewed the patient's vital signs. Vital Signs: Vital Signs 04/25/16 11:11 Temperature 36.2 C L Pulse Rate 56 L Respiratory 14 Rate Blood Pressure 152/85 O2 Sat by Pulse 98 Oximetry - Progress/Reassessment Chief Complaint: Nausea/Vomiting Progress:: Improved Plan - Plan Plan: Patient reports improvement in nausea after IM Phenergan. Was going to d/c home with suppositories but patient states she does not have the money to get them. Vomiting likely d/t viral illness as this has been prevalent in the community as of late. Discussed typical course of illness with patient. Also discussed GI bleeding that would be of concern r/t to her anticoagulant therapy. Emesis here did not have visible blood, but was Gastrocult positive. Dr. Tee contacted as the patient was to be seeing him in clinic today. Patient is to continue her current medications and contact the office to reschedule her follow up appointment. Departure - Departure Clinical Impression: Hematemesis with nausea Pulmonary embolism Qualifiers: Pulmonary embolism type: other Chronicity: acute Acute cor pulmonale presence: without acute cor pulmonale Qualified Code(s): I26.99 - Other pulmonary embolism without acute cor pulmonale Disposition: Home Follow Up Needed Condition: Stable Instructions: Nausea, Adult, [id number] Additional Instructions: Continue your current medications Diet as discussed - small amounts of clear liquids as tolerated Contact Dr. Tee's office to reschedule your appointment Referrals: Luke Tee, [Primary Care Provider] -
[2016-04-25 11:47] LABS: Hematocrit 36.3 % (37.0-47.0); Hemoglobin 12.2 gm/dL (12.5-16.0); Mean Cell Volume 85.8 fl (78-100); Mean Corpuscular Hemoglobin 28.8 pg (27-31); Mean Corpuscular Hgb Conc 33.6 g/dl (32-36); Mean Platelet Volume 9.2 fl (6.0-9.5); Neutrophil % 78.1 % (42-75.0); Platelet Count 328 K/mm3 (150-450); Red Blood Count 4.23 M/mm3 (4.2-5.4); Red Cell Distribution Width 12.3 % (11.5-14.0); White Blood Count 14.1 K/mm3 (4.0-10.5)
[2016-04-25 11:56] LABS: Prothrombin Time (Patient) 12.6 Seconds (9.4-11.4)
[2016-04-25 11:58] LABS: Albumin * 3.5 gm/dl (3.4-5.0); Anion Gap 13.3 mmol/L (6.8-13.8); BUN/Creatinine Ratio 16.9 (9.0-21.6); Bilirubin, Total 0.2 mg/dL (0.0-1.1); Ca. Corrected For Albumin 8.7 mg/dL (8.4-10.2); Calcium * 8.6 mg/dL (7.9-10.9); Carbon Dioxide 26.4 mmol/L (24-32.6); Potassium 3.7 mmol/L (3.4-4.6); Total Protein 7.8 gm/dL (6.2-8.2)
[2016-04-25 11:59] LABS: INR 1.21 INR (0.90-1.10)
== END 2016-04-25 13:02 | disposition home or self-care (01) ==
LOC: ER 11:03
DX: K92.0 Hematemesis (principal); I26.99 Other pulmonary embolism without acute cor pulmonale; F41.8 Other specified anxiety disorders; E11.9 Type 2 diabetes mellitus without complications; I10 Essential (primary) hypertension; K21.9 Gastro-esophageal reflux disease without esophagitis

== ENCOUNTER 2016-04-29 14:50 | Emergency (ER) | payer SELFPAY ==
--- NOTE | 2016-04-29 15:52 | ERNOTE ---
Lower Extremity HPI - Narrative Date of Service: 04/29/16 - General Lower Extremities Pain: ankle: right Time Seen by Provider: 04/29/16 15:23 Source: patient, family Exam Limitations: no limitations - Immun/Allergies/Home Medications Immunizations: IMMUNIZATION HX Immunizations Up to Date Yes History of Influenza Vaccine No Hx Pneumococcal Vaccination No Allergies/Adverse Reactions: Allergies Allergy/AdvReac Type Severity Reaction Status Date / Time Influenza Virus Vaccines Allergy Intermediate Hives Verified 04/29/16 14:58 ciprofloxacin [From Cipro] Allergy Verified 04/29/16 14:58 ciprofloxacin HCl Allergy Verified 04/29/16 14:58 [From Cipro] ibuprofen Allergy Verified 04/29/16 14:58 latex Allergy Verified 04/29/16 14:58 metformin Allergy Verified 04/29/16 14:58 pantoprazole sodium Allergy Verified 04/29/16 14:58 [From Protonix] Penicillins Allergy Verified 04/29/16 14:58 Sulfa (Sulfonamide Allergy Verified 04/29/16 14:58 Antibiotics) Home Medications: HOME MEDICATIONS Albuterol Sulfate [Albuterol Sulfate 0.63 MG/3ML] 0.63 mg IH Q4H 04/09/16 [Last Taken Unknown] Amitriptyline HCl [Elavil] 25 mg PO HS 04/09/16 [Last Taken Unknown] Budesonide/Formoterol Fumarate [Symbicort 80-4.5 Mcg Inhaler] 1 puff IH DAILY [Last Taken Unknown] Gabapentin [Gralise] 600 mg PO DAILY 04/09/16 [Last Taken Unknown] Hydrochlorothiazide [Hydrodiuril] 25 mg PO DAILY 04/09/16 [Last Taken Unknown] Insulin Glargine,Hum.rec.anlog [Lantus] 30 units SC HS 04/09/16 [Last Taken Unknown] Potassium Chloride [Klor-Con Sprinkle] 10 meq PO DAILY 04/09/16 [Last Taken Unknown] Pregabalin [Lyrica] 75 mg PO BID 04/09/16 [Last Taken Unknown] Venlafaxine HCl [Effexor Xr] 75 mg PO DAILY 04/09/16 [Last Taken Unknown] traZODone HCL [Desyrel] 50 mg PO HS PRN 04/09/16 [Last Taken Unknown] Famotidine [Pepcid] 40 mg PO DAILY 04/20/16 [Last Taken Unknown] Rivaroxaban [Xarelto] 15 mg PO BID #60 tab 04/21/16 [Last Taken Unknown] oxyCODONE HCL/ACETAMINOPHEN [Percocet 5 MG/325 MG] 2 tab PO Q6H PRN #90 tablet 04/21/16 [Last Taken Unknown] Nystatin [Mycostatin Ointment] 1 appl TP TID #15 gm 04/24/16 [Last Taken Unknown ] - History of Present Illness Narrative: Helping a friend move. Turned her right ankle on a step, causing ongoing pain. Went to the [facility] ER, but didn't trust the assessment, can't use the crutches because she is unable, and the aircast brace makes her ankle actually hurt worse. Recently diagnosed with a PE and is on coumadin. Has a followup with Dr. Tee in early May. Occurred: just prior to arrival Location of Incident: neighbors Method of Injury: Reports: fell Reason for Fall: Reports: slipped Loss of Consciousness: Reports: no loss of consciousness Modifying Factors - (Improves): Reports: rest Modifying Factors - (Worsens): Reports: jarring, movement Associated Symptoms: Reports: unable to bear weight Other Injuries: Reports: none Subsequent Symptoms: Denies: sensory loss, numbness, motor loss Prior Treament: Reports: recently seen, treated by physician. Denies: currently on antibiotics Review of Systems - Review of Systems Constitutional: Present: no symptoms reported EYE: Present: no symptoms reported ENT: Present: no symptoms reported Respiratory: Present: no symptoms reported Cardiology: Present: no symptoms reported Gastrointestinal/Abdominal: Present: no symptoms reported Genitourinary: Present: no symptoms reported Musculoskeletal: Present: See HPI Neurological: Present: no symptoms reported Endocrine: Present: no symptoms reported Hematologic/Lymphatic: Present: no symptoms reported Psych: Present: no symptoms reported All Other Systems: All systems neg except as marked - Patient's Past Medical History Patient History - Medical: Anxiety, Chronic Pain, Diabetes Type 2, Depression, GERD, Seizures Patient History - Cardiac/Respiratory: Asthma, COPD, Hypertension, Myocardial Infarction, Pulmonary Embolism Patient History - Cancer: Cervical Patient History - Surgical Procedures: Appendectomy, Cholecystectomy, Hysterectomy, Tubal Ligation Patient History - Other: None - Family History Mother Family History - Cardiac/Respiratory: Deep Vein Thrombosis, Myocardial Infarction Family History - Cancer: Breast Grandmother-Maternal Family History - Cardiac/Respiratory: Deep Vein Thrombosis - Social History Living Situations: parents Abuse History: No History of abuse Psych History: Hx of Anxiety, Hx of Depression, Current tx/ever been on anti- depressants or anti-anxiety meds Smoking Status: Former smoker Have you smoked in the past 12 months: No Do you dip or chew tobacco: No Alcohol Use: none Drug Use: none - Immunizations Immunizations Up to Date: Yes Hx Pneumococcal Vaccination: No History of Influenza Vaccine: No Physical Exam - Physical Exam General Appearance: Present: wd/wn, alert, no apparent distress Eye Exam: Normal inspection: bilateral, PERRL: bilateral, EOMI: bilateral Ears, Nose, Throat: Present: normal ENT inspection, hearing grossly normal Neck: Present: normal inspection Respiratory: Present: no respiratory distress Cardiovascular/Chest: Present: regular rate, rhythm Gastrointestinal/Abdominal: Present: normal bowel sounds, nontender, nondistended, soft, no organomegaly Back Exam: Present: normal inspection Extremity Exam: Present: other - lateral ankle tenderness, all three ligaments. achilles also tender. mild swelling, no bruising. Neurological Exam: Present: alert, oriented, normal mood/affect, no motor/ sensory deficits Skin Exam: Present: normal color, warm/dry ED Progress - Vital Signs Patient's Vital Signs:: I have reviewed the patient's vital signs. Vital Signs: Vital Signs 04/29/16 14:54 Temperature 36.2 C L Pulse Rate 63 Respiratory 14 Rate Blood Pressure 144/91 O2 Sat by Pulse 97 Oximetry - Progress/Reassessment Chief Complaint: Lower Extremity Pain/ Injury Progress Note-Subjective: 04/29/16 15:51 I reviewed the xray report from [facility] ER from today, which only noted a calcaneal spur. Procedures Comments: Can't tolerate the aircast brace. Can't manage the crutches. No wheelchair available. No cam boot available. Can't walk on her foot as her ankle is now due to pain. Applied short leg cast with an ortho shoe. Keep dry, and gave other cast instructions. Departure Clinical Impression: Right ankle sprain Qualifiers: Encounter type: initial encounter Involved ligament of ankle: unspecified ligament Qualified Code(s): S93.401A - Sprain of unspecified ligament of right ankle, initial encounter - Departure Disposition: Home self-care Condition: Good Instructions: Ankle Sprain, How to Use a Cast Shoe Additional Instructions: Keep your appt with Dr. Tee. Return to the ER as needed. Keep your cast dry. Referrals: Luke Tee, [Primary Care Provider] -
[2016-04-29 16:35] VITALS: BP 132/75
== END 2016-04-29 16:34 | disposition home or self-care (01) ==
LOC: ER 14:50
PROC: 2W3LX2Z Immobilization of Right Lower Extremity using Cast (ICD-10-PCS; principal; 2016-04-29)
DX: S93.401A Sprain of unspecified ligament of right ankle, initial encounter (principal); X58.XXXA Exposure to other specified factors, initial encounter; Y93.89 Activity, other specified; F41.8 Other specified anxiety disorders; E11.9 Type 2 diabetes mellitus without complications; Z79.4 Long term (current) use of insulin; I10 Essential (primary) hypertension

== ENCOUNTER 2016-05-13 04:15 | Emergency (ER) | payer OTHER ==
[2016-05-13] MEDS ORDERED: ONDANSETRON HCL/PF 2 MG/ML VIAL IV ONE (04:48)
[2016-05-13] MEDS ORDERED: NORMAL SALINE 1,000 ML IV PRN (04:51)
--- NOTE | 2016-05-13 05:06 | ERNOTE ---
Abdominal HPI - Narrative Date of Service: 05/13/16 - General Chief Complaint: Abdominal Pain Time Seen by Provider: 05/13/16 04:31 Source: patient, family - Immun/Allergies/Home Medications Immunizatons: IMMUNIZATION HX Immunizations Up to Date Yes History of Influenza Vaccine No Hx Pneumococcal Vaccination No Allergies/Adverse Reactions: Allergies Influenza Virus Vaccines Allergy (Intermediate, Verified 05/13/16 05:17) Hives ciprofloxacin [From Cipro] Allergy (Verified 05/13/16 05:17) ciprofloxacin HCl [From Cipro] Allergy (Verified 05/13/16 05:17) ibuprofen Allergy (Verified 05/13/16 05:17) latex Allergy (Verified 05/13/16 05:17) metformin Allergy (Verified 05/13/16 05:17) pantoprazole sodium [From Protonix] Allergy (Verified 05/13/16 05:17) Penicillins Allergy (Verified 05/13/16 05:17) Sulfa (Sulfonamide Antibiotics) Allergy (Verified 05/13/16 05:17) Home Medications: HOME MEDICATIONS Albuterol Sulfate [Albuterol Sulfate 0.63 MG/3ML] 0.63 mg IH Q4H 04/09/16 [Last Taken Unknown] Amitriptyline HCl [Elavil] 25 mg PO HS 04/09/16 [Last Taken Unknown] Budesonide/Formoterol Fumarate [Symbicort 80-4.5 Mcg Inhaler] 1 puff IH DAILY [Last Taken Unknown] Gabapentin [Gralise] 600 mg PO DAILY 04/09/16 [Last Taken Unknown] Hydrochlorothiazide [Hydrodiuril] 25 mg PO DAILY 04/09/16 [Last Taken Unknown] Insulin Glargine,Hum.rec.anlog [Lantus] 30 units SC HS 04/09/16 [Last Taken Unknown] Pregabalin [Lyrica] 75 mg PO BID 04/09/16 [Last Taken Unknown] Venlafaxine HCl [Effexor Xr] 75 mg PO DAILY 04/09/16 [Last Taken Unknown] traZODone HCL [Desyrel] 50 mg PO HS PRN 04/09/16 [Last Taken Unknown] Famotidine [Pepcid] 40 mg PO DAILY 04/20/16 [Last Taken Unknown] Potassium 99 mg PO DAILY 03/04/17 [Last Taken Unknown] Promethazine HCl [Phenergan Suppository] 25 mg RC Q6H PRN #20 supp.rect [Last Taken Unknown] Rivaroxaban [Xarelto] 15 mg PO BID 05/13/16 [Last Taken Unknown] - History of Present Illness Narrative: PT RELATES THAT SHE AWAKENED AT 0345 WITH LUQ ABD. PAIN AND VOMITING X 1. NO FEVER OR DIARRHEA. SHE STATES SHE HAS HAD URINARY FREQUENCY WITH SOME INCONTINENCE EVER SINCE STARTING XARELTO 3 WEEKS AGO FOR A NEWLY DX'D P.E. THAT WAS DISCOVERED WHILE SHE WAS IN [facility] AT [facility]. THIS WAS STARTED IN THE ER AND SHE AND HER BOYFRIEND DECIDED TO RETURN TO THIS AREA. SHE HAS ALSO BEEN TAKING IBUPROFEN 800 MG ALTERNATING WITH TORADOL FOR A RECENT RIGHT ANKLE INJURY. ALL HER OTHER MEDS ARE UNCHANGED. SHE DENIES ANY KNOWN CONTACTS AND DENIES ANY OTHER NEW INJURY. Timing: constant Quality: sharpness Activities at Onset: sleep Associated Symptoms: Present: nausea, vomiting. Absent: fever/chills Prior Treatment: Present: treated by physician Review of Systems - Review of Systems Constitutional: Present: See HPI, recent illness - NEWLY DX'D PULMONARY EMBOLISM. EYE: Present: no symptoms reported ENT: Present: no symptoms reported Respiratory: Present: no symptoms reported Cardiology: Present: no symptoms reported Gastrointestinal/Abdominal: Present: See HPI, nausea, vomiting Genitourinary: Present: See HPI, frequency Musculoskeletal: Present: See HPI Skin: Present: no symptoms reported Neurological: Present: no symptoms reported Endocrine: Present: no symptoms reported Hematologic/Lymphatic: Present: no symptoms reported Psych: Present: anxiety, depressed - SHE HAS A CHRONIC HX OF BOTH ANXIETY AND DEPRESSION All Other Systems: All systems neg except as marked - Patient's Past Medical History Patient History - Medical: Anxiety, Chronic Pain, Diabetes Type 2, Depression, GERD, Obesity, Seizures Patient History - Cardiac/Respiratory: Asthma, COPD, Hypertension, Myocardial Infarction, Pulmonary Embolism Patient History - Cancer: Cervical Patient History - Surgical Procedures: Appendectomy, Cholecystectomy, Hysterectomy, Tubal Ligation Patient History - Other: None LMP (females 10-50): Menopausal - Family History Mother Family History - Cardiac/Respiratory: Deep Vein Thrombosis, Myocardial Infarction Family History - Cancer: Breast Grandmother-Maternal Family History - Cardiac/Respiratory: Deep Vein Thrombosis - Social History Living Situations: significant other Abuse History: No History of abuse Psych History: Hx of Anxiety, Hx of Depression, Current tx/ever been on anti- depressants or anti-anxiety meds Smoking Status: Never smoker Have you smoked in the past 12 months: No Do you dip or chew tobacco: No Alcohol Use: none Drug Use: none - Immunizations Immunizations Up to Date: Yes Hx Pneumococcal Vaccination: No History of Influenza Vaccine: No Physical Exam - Physical Exam General Appearance: Present: alert, moderate distress, other - PT IS OBESE , NAUSEATED, A & O 41 Y.O. LADY WHO IS COOPERATIVE. Respiratory: Present: no respiratory distress, normal breath sounds, no accessory muscle use, lungs clear Cardiovascular/Chest: Present: regular rate, rhythm, no murmur Gastrointestinal/Abdominal: Present: normal bowel sounds, soft, no organomegaly , tenderness - LEFT UPPER QUADRANT WITH MILD GUARDING BUT NO REBOUND . NO RASH Back Exam: Present: no CVA tenderness Neurological Exam: Present: alert, oriented, normal mood/affect Skin Exam: Present: normal color, warm/dry ED Progress - Results and Orders Patient's Lab Results:: I have reviewed the patient's lab results. Results and Orders: all are normal except a sl. elevated wbc of 11.2 which is decreased from her last wbc - Vital Signs Vital Signs: Vital Signs 05/13/16 04:16 Temperature 37.9 C H Pulse Rate 66 Respiratory 18 Rate Blood Pressure 164/95 O2 Sat by Pulse 99 Oximetry - CT/Ultrasound CT/Ultrasound Narrative: ARGUS REPORT IS THAT CT ABD/PEL IS NORMAL EXCEPT FOR NOTED SMALL HIATAL HERNIA. - Progress/Reassessment Chief Complaint: Abdominal Pain Progress:: Improved Departure - Departure Clinical Impression: Left upper quadrant abdominal tenderness Qualifiers: Presence of rebound: present Qualified Code(s): R10.822 - Left upper quadrant rebound abdominal tenderness Disposition: Home Follow Up Needed Condition: Good Instructions: Nausea, Adult, Hiatal Hernia, Indigestion Additional Instructions: LIGHT DIET FOR THE NEXT 24 HOURS. TRIAL OF PEPCID OR PEPCID AC FOR THE NEXT 7- 10 DAYS( AVAIALBLE OVER THE COUNTER) . RECHECK WITH YOUR FAMILY DOCTOR IF FURTHER PROBLEMS. IF MORE NAUSEA AND VOMITING CONSIDER FILLLING AND USING THE PRESCRIPTION FOR PHENERGAN SUPPOSITORIES. Referrals: Luke Tee DO [Primary Care Provider] - Prescriptions: Promethazine HCl [Phenergan Suppository] 25 mg RC Q6H PRN #20 supp.rect PRN Reason: Nausea
[2016-05-13] MEDS ORDERED: ONDANSETRON HCL/PF 2 MG/ML VIAL ONE (05:18)
[2016-05-13 06:05] LABS: Hematocrit 39.9 % (37.0-47.0); Hemoglobin 13.1 gm/dL (12.5-16.0); Mean Cell Volume 87.1 fl (78-100); Mean Corpuscular Hemoglobin 28.6 pg (27-31); Mean Corpuscular Hgb Conc 32.8 g/dl (32-36); Mean Platelet Volume 9.4 fl (6.0-9.5); Neutrophil # 5.7 K/mm3 (1.3-6.0); Neutrophil % 51.5 % (42-75.0); Platelet Count 316 K/mm3 (150-450); Red Blood Count 4.58 M/mm3 (4.2-5.4); Red Cell Distribution Width 12.7 % (11.5-14.0); White Blood Count 11.2 K/mm3 (4.0-10.5)
[2016-05-13 06:07] LABS: Prothrombin Time (Patient) 9.7 Seconds (9.4-11.4)
[2016-05-13 06:10] LABS: Urine Bilirubin Negative (NEGATIVE); Urine Blood Negative /ul (NEGATIVE); Urine Ketone Negative (NEGATIVE); Urine Nitrite Negative (NEGATIVE); Urine Protein Negative (NEGATIVE); Urine Specific Gravity >=1.030 SP.GR. (1.005-1.010); Urine Urobilinogen Normal (NORMAL); Urine pH 5.5 pH (5.0-7.0)
[2016-05-13 06:12] LABS: Albumin * 3.5 gm/dl (3.4-5.0); Anion Gap 15.2 mmol/L (6.8-13.8); BUN/Creatinine Ratio 15.2 (9.0-21.6); Bilirubin, Total 0.2 mg/dL (0.0-1.1); Ca. Corrected For Albumin 8.9 mg/dL (8.4-10.2); Calcium * 8.8 mg/dL (7.9-10.9); Carbon Dioxide 21.7 mmol/L (24-32.6); Potassium 3.9 mmol/L (3.4-4.6); Total Protein 7.8 gm/dL (6.2-8.2)
[2016-05-13 06:26] LABS: Urine Appearance Slightly Cloudy; Urine Color Yellow
[2016-05-13 06:27] LABS: INR 0.93 INR (0.90-1.10); Urine Bacteria None Seen; Urine RBC None Seen /hpf (0-5); Urine WBC None Seen /hpf (0-5)
[2016-05-13 06:28] LABS: Partial Thrombolplastin Time 25.4 Seconds (24-32)
[2016-05-13 07:52] VITALS: BP 148/80
== END 2016-05-13 08:07 | disposition home or self-care (01) ==
LOC: ER 04:15
DX: R10.822 Left upper quadrant rebound abdominal tenderness (principal); F41.8 Other specified anxiety disorders; G89.29 Other chronic pain; E11.9 Type 2 diabetes mellitus without complications; I10 Essential (primary) hypertension

== ENCOUNTER 2016-06-04 13:52 | Emergency (ER) | payer OTHER ==
[2016-06-04] MEDS ORDERED: KETOROLAC TROMETHAMINE 60 MG/2 ML VIAL IM ONE ×2 (14:32→14:46)
[2016-06-04] MEDS ORDERED: HYDROmorphone HCL 1 MG/ML DISP.SYRIN IM ONE (14:32)
--- NOTE | 2016-06-04 14:41 | ERNOTE ---
Lower Extremity HPI - Narrative Date of Service: 06/04/16 - General Lower Extremities Pain: ankle: right Time Seen by Provider: 06/04/16 14:24 Source: patient, family Exam Limitations: no limitations - Immun/Allergies/Home Medications Immunizations: IMMUNIZATION HX Immunizations Up to Date Yes History of Influenza Vaccine No Hx Pneumococcal Vaccination No Allergies/Adverse Reactions: Allergies Allergy/AdvReac Type Severity Reaction Status Date / Time Influenza Virus Vaccines Allergy Intermediate Hives Verified 06/04/16 14:21 ciprofloxacin [From Cipro] Allergy Verified 06/04/16 14:21 ciprofloxacin HCl Allergy Verified 06/04/16 14:21 [From Cipro] ibuprofen Allergy Verified 06/04/16 14:21 latex Allergy Verified 06/04/16 14:21 metformin Allergy Verified 06/04/16 14:21 pantoprazole sodium Allergy Verified 06/04/16 14:21 [From Protonix] Penicillins Allergy Verified 06/04/16 14:21 Sulfa (Sulfonamide Allergy Verified 06/04/16 14:21 Antibiotics) Home Medications: HOME MEDICATIONS Albuterol Sulfate [Albuterol Sulfate 0.63 MG/3ML] 0.63 mg IH Q4H 04/09/16 [Last Taken Unknown] Amitriptyline HCl [Elavil] 25 mg PO HS 04/09/16 [Last Taken Unknown] Budesonide/Formoterol Fumarate [Symbicort 80-4.5 Mcg Inhaler] 1 puff IH DAILY [Last Taken Unknown] Gabapentin [Gralise] 600 mg PO DAILY 04/09/16 [Last Taken Unknown] Hydrochlorothiazide [Hydrodiuril] 25 mg PO DAILY 04/09/16 [Last Taken Unknown] Insulin Glargine,Hum.rec.anlog [Lantus] 30 units SC HS 04/09/16 [Last Taken Unknown] Pregabalin [Lyrica] 75 mg PO BID 04/09/16 [Last Taken Unknown] Venlafaxine HCl [Effexor Xr] 75 mg PO DAILY 04/09/16 [Last Taken Unknown] traZODone HCL [Desyrel] 50 mg PO HS PRN 04/09/16 [Last Taken Unknown] Famotidine [Pepcid] 40 mg PO DAILY 04/20/16 [Last Taken Unknown] Potassium 99 mg PO DAILY 05/13/16 [Last Taken Unknown] Promethazine HCl [Phenergan Suppository] 25 mg RC Q6H PRN #20 supp.rect [Last Taken Unknown] Dabigatran Etexilate Mesylate [Pradaxa] 150 mg PO DAILY 06/04/16 [Last Taken Unknown] - History of Present Illness Narrative: Previous ankle injury, but reinjured it slipping down a hill helping a friend move. Dr. Gómez has seen her and is taking care of it. 2 days ago started physical therapy. This weekend more swelling and pain in her right lower leg. She called the oncall ortho person, who instructed her to come to the [facility] ER to make sure she doesn't have a clot. She is using 100 mg tramadol at a time for pain, but it doesn't help. Occurred: other Location of Incident: neighbors Method of Injury: Reports: fell Reason for Fall: Reports: slipped Loss of Consciousness: Reports: no loss of consciousness Modifying Factors - (Improves): Reports: rest Modifying Factors - (Worsens): Reports: jarring, movement Associated Symptoms: Reports: popping sensation Other Injuries: Reports: none Subsequent Symptoms: Denies: sensory loss, numbness, motor loss Review of Systems - Review of Systems Constitutional: Present: no symptoms reported EYE: Present: no symptoms reported ENT: Present: no symptoms reported Respiratory: Present: no symptoms reported Cardiology: Present: no symptoms reported Gastrointestinal/Abdominal: Present: no symptoms reported Genitourinary: Present: no symptoms reported Musculoskeletal: Present: See HPI Skin: Present: no symptoms reported Neurological: Present: no symptoms reported Endocrine: Present: no symptoms reported Hematologic/Lymphatic: Present: no symptoms reported Psych: Present: no symptoms reported All Other Systems: All systems neg except as marked - Patient's Past Medical History Patient History - Medical: Anxiety, Chronic Pain, Diabetes Type 2, Depression, GERD, Obesity, Seizures Patient History - Cardiac/Respiratory: Asthma, COPD, CVA/Stroke, Hypertension, Myocardial Infarction, Pulmonary Embolism Patient History - Cancer: Cervical Patient History - Surgical Procedures: Appendectomy, Cholecystectomy, Hysterectomy, Tubal Ligation Patient History - Other: None LMP (females 10-50): Menopausal - Family History Mother Family History - Medical: Diabetes Type 2, Seizures Family History - Cardiac/Respiratory: Deep Vein Thrombosis, Hyperlipidemia, Myocardial Infarction Family History - Cancer: Cervical Grandmother-Maternal Family History - Cardiac/Respiratory: Deep Vein Thrombosis - Social History Living Situations: significant other Abuse History: No History of abuse Psych History: Hx of Anxiety, Hx of Depression, Current tx/ever been on anti- depressants or anti-anxiety meds Smoking Status: Former smoker Alcohol Use: none Drug Use: none - Immunizations Immunizations Up to Date: Yes Hx Pneumococcal Vaccination: No History of Influenza Vaccine: No Physical Exam - Physical Exam General Appearance: Present: wd/wn, alert, no apparent distress Eye Exam: Normal inspection: bilateral, PERRL: bilateral, EOMI: bilateral Ears, Nose, Throat: Present: normal ENT inspection Neck: Present: normal inspection Respiratory: Present: no respiratory distress Cardiovascular/Chest: Present: regular rate, rhythm Extremity Exam: Present: other - antalgic gait. has laceup splint on right foot and ankle. we removed the splint and the underlying stockings. skin pink. good cap fill and pulses. good motion and strength. tenderness and slight swelling lateral right ankle. Neurological Exam: Present: alert, oriented, normal mood/affect Skin Exam: Present: normal color, warm/dry ED Progress - Vital Signs Patient's Vital Signs:: I have reviewed the patient's vital signs. Vital Signs: Vital Signs 06/04/16 14:11 Temperature 37.0 C Pulse Rate 79 Respiratory 14 Rate Blood Pressure 141/96 O2 Sat by Pulse 97 Oximetry - CT/Ultrasound CT/Ultrasound Narrative: I reviewed the calf ultrasound report, there is no DVT. - Progress/Reassessment Chief Complaint: Ankle Injury/ Pain Departure Clinical Impression: Right ankle pain Qualifiers: Chronicity: chronic Qualified Code(s): M25.571 - Pain in right ankle and joints of right foot; G89.29 - Other chronic pain - Departure Disposition: Home self-care Condition: Good Instructions: Musculoskeletal Pain Additional Instructions: use crutches, use brace. no weight bearing right ankle. see your orthopedic surgeon sometime next week. take 2 tramadol three times daily on a regular basis, each time with 1000 mg tylenol. Referrals: Daisy Coles DO [Primary Care Provider] -
[2016-06-04] MEDS ORDERED: HYDROmorphone HCL 1 MG/ML DISP.SYRIN ONE (14:47)
[2016-06-04] MEDS ORDERED: LORazepam 2 MG/ML DISP.SYRIN IM ONE (16:03)
[2016-06-04] MEDS ORDERED: ONDANSETRON 4 MG TAB.RAPDIS PO ONE (16:03)
[2016-06-04] MEDS ORDERED: LORazepam 2 MG/ML DISP.SYRIN ONE (16:08)
[2016-06-04] MEDS ORDERED: ONDANSETRON HCL 8 MG TABLET ONE (16:08)
[2016-06-04] MEDS ORDERED: ONDANSETRON 4 MG TAB.RAPDIS ONE (16:14)
[2016-06-04 16:52] VITALS: BP 103/58
== END 2016-06-04 17:17 | disposition home or self-care (01) ==
LOC: ER 13:52
DX: G89.29 Other chronic pain (principal); F41.8 Other specified anxiety disorders; E11.9 Type 2 diabetes mellitus without complications; I10 Essential (primary) hypertension; Z86.73 Personal history of transient ischemic attack (TIA), and cerebral infarction without residual deficits

== ENCOUNTER 2016-06-27 21:15 | Emergency (ER) | payer OTHER ==
[2016-06-27] MEDS ORDERED: ALBUTEROL SULFATE 2.5 MG/3 ML VIAL.NEB IH ONE ×2 (21:47→23:23)
--- NOTE | 2016-06-27 21:48 | ERNOTE ---
<Kahlil Kuo - Last Filed: 06/28/16 08:37> Medical Problem HPI - General Chief Complaint: Diabetes Related Problem Time Seen by Provider: 06/27/16 21:40 - Immun/Allergies/Home Medications Immunizations: IMMUNIZATION HX Immunizations Up to Date Yes History of Influenza Vaccine No Hx Pneumococcal Vaccination No Allergies/Adverse Reactions: Allergies Influenza Virus Vaccines Allergy (Intermediate, Verified 08/13/16 15:44) Hives ciprofloxacin [From Cipro] Allergy (Verified 08/13/16 15:44) ciprofloxacin HCl [From Cipro] Allergy (Verified 08/13/16 15:44) ibuprofen Allergy (Verified 08/13/16 15:44) latex Allergy (Verified 08/13/16 15:44) metformin Allergy (Verified 08/13/16 15:44) pantoprazole sodium [From Protonix] Allergy (Verified 08/13/16 15:44) Penicillins Allergy (Verified 08/13/16 15:44) Sulfa (Sulfonamide Antibiotics) Allergy (Verified 08/13/16 15:44) Home Medications: HOME MEDICATIONS Albuterol Sulfate [Albuterol Sulfate 0.63 MG/3ML] 0.63 mg IH Q4H 04/09/16 [Last Taken Unknown] Amitriptyline HCl [Elavil] 25 mg PO HS 04/09/16 [Last Taken Unknown] Gabapentin [Gralise] 600 mg PO TID 04/09/16 [Last Taken Unknown] Hydrochlorothiazide [Hydrodiuril] 25 mg PO DAILY 04/09/16 [Last Taken Unknown] Venlafaxine HCl [Effexor Xr] 75 mg PO DAILY 04/09/16 [Last Taken Unknown] Dabigatran Etexilate Mesylate [Pradaxa] 150 mg PO BID 06/27/16 [Last Taken Unknown] Losartan Potassium [Cozaar] 50 mg PO DAILY 06/27/16 [Last Taken Unknown] Ranitidine HCl [Heartburn Relief] 150 mg PO BID 06/27/16 [Last Taken Unknown] Topiramate [Topamax] 50 mg PO DAILY 06/27/16 [Last Taken Unknown] QUEtiapine FUMARATE [Seroquel] 100 mg PO HS 07/20/16 [Last Taken Unknown] Zolpidem Tartrate 10 mg PO HS 07/29/16 [Last Taken Unknown] Budesonide/Formoterol Fumarate [Symbicort 80-4.5 Mcg Inhaler] 10.2 gm IH BID [Last Taken Unknown] Methylcellulose [Citrucel] 500 mg PO DAILY 08/04/16 [Last Taken Unknown] levETIRAcetam [Keppra] 500 mg PO BID #60 tablet 08/07/16 [Last Taken Unknown] Acetaminophen with Codeine [Tylenol with Codeine #3 Tablet] 1 - 2 tab PO Q4H PRN #10 tab 08/09/16 [Last Taken Unknown] Clonazepam 2 tab PO HS 08/13/16 [Last Taken Unknown] ED Progress - Date and Time Seen: Date and Time: 06/28/16 08:37 Patient who has been at ER for 11 hours due to suicidal ideation and chest pain. Patient has Hx of DM and ID with cath on [place]. Patient at the moment was reported with negative troponin and with no ST Elevations. Patient was seen by Dr. Blakely who recommended Transfer due to Unstable Angina. I had presented case to Dr. Velarde at [facility] who accepted case. Patient at the moment is with no distress and is stable for transfer. - Results and Orders Patient's Lab Results:: I have reviewed the patient's lab results. Results and Orders: CBC: Elevated WBC Trop: Negative x 2 THS: Normal CMP: Normal ABG: pH: 7.45 Tox: Negative UA: Positive - Vital Signs Patient's Vital Signs:: I have reviewed the patient's vital signs. Vital Signs: Vital Signs 06/28/16 06/28/16 06/28/16 01:11 01:25 01:48 Temperature 36.9 C Pulse Rate 110 H 94 90 Respiratory 15 16 14 Rate Blood Pressure 142/87 124/72 126/84 O2 Sat by Pulse 97 98 98 Oximetry 06/28/16 06/28/16 06/28/16 02:14 03:00 03:38 Temperature Pulse Rate 88 90 92 Respiratory 14 16 14 Rate Blood Pressure 122/80 129/71 140/82 O2 Sat by Pulse 99 99 99 Oximetry 06/28/16 06/28/16 06/28/16 04:01 04:31 05:07 Temperature Pulse Rate 90 74 72 Respiratory 14 14 14 Rate Blood Pressure 111/63 104/63 122/66 O2 Sat by Pulse 99 98 98 Oximetry 04/06/28/16 06/28/16 05:32 06:11 06:30 Temperature Pulse Rate 77 73 69 Respiratory 14 14 Rate Blood Pressure 128/70 125/70 144/83 O2 Sat by Pulse 95 95 97 Oximetry 06/28/16 06/28/16 07:00 07:30 Temperature Pulse Rate 71 68 Respiratory Rate Blood Pressure 121/65 139/78 O2 Sat by Pulse 97 96 Oximetry - EKG EKG read: Interp. by me - No ST elevation, Changed from 04/24/2016, LVH, LAD - CT/Ultrasound CT/Ultrasound Narrative: CT Chest: No PE - Progress/Reassessment Chief Complaint: Diabetes Related Problem - Transfer of Care Expected Disposition: Transfer Plan - Plan Plan: Patient has been accepted at [facility] and will be transferred. Departure - Departure Clinical Impression: Suicidal ideations, Unstable angina Chest pain Qualifiers: Chest pain type: unspecified Qualified Code(s): R07.9 - Chest pain, unspecified Disposition: [facility] Condition: Fair Referrals: Daisy Coles DO [Primary Care Provider] - <Levi Blakely - Last Filed: 09/08/16 05:55> Medical Problem HPI - Narrative Date of Service: 06/27/16 - General Source: patient Exam Limitations: no limitations - Immun/Allergies/Home Medications Immunizations: IMMUNIZATION HX Immunizations Up to Date Yes History of Influenza Vaccine No Hx Pneumococcal Vaccination No - History of Present History Narrative: 41 year old diabetic that felt ill which she thought was associated with hypoglycemia at 2100h. At home the glucose level was in the 70s. The last time she took her insulin was yesterday and is confident that there were no errors in the amount of the medication that was administered. Complaints of shortness of breath and chest pressure that occurs intermittently since 2100 hours. The chest pressure is similar to an asthma attack and PE. Denies fevers, chills, diaphoresis, N/V. s/p ID last year diagnosed in a hospital in [place]. Has been hearing voices since yesterday that are just screams. She believes that they have not been as loud previously as they are now. Suicidal thoughts for years, however they are progressively getting stronger. Her plan would be to cut her arms. Her primary care physician has been treating her depression and has made arrangements to have her see a psychiatrist next week. Laquita feels like she is very stressed at this time. The patient is open to the idea of being admitted to a psychiatric hospital voluntarily in order to get help. PMH: PE, ID, DM. Timing: intermittent Severity: mild Modifying Factors - (Improves): Present: other - nothing Modifying Factors - (Worsens): Present: other - exertion Review of Systems - Review of Systems Constitutional: Present: recent illness EYE: Present: no symptoms reported ENT: Present: no symptoms reported Respiratory: Present: See HPI Cardiology: Present: See HPI Gastrointestinal/Abdominal: Present: no symptoms reported Genitourinary: Present: no symptoms reported Musculoskeletal: Present: no symptoms reported Skin: Present: no symptoms reported Neurological: Present: See HPI Endocrine: Present: See HPI Hematologic/Lymphatic: Present: no symptoms reported Psych: Present: See HPI, depressed - Patient's Past Medical History Patient History - Medical: Diabetes Type 2 Patient History - Cardiac/Respiratory: Asthma, COPD, CVA/Stroke, Hypertension, Myocardial Infarction, Pulmonary Embolism Patient History - Cancer: Cervical, Other Patient History - Surgical Procedures: Hysterectomy, Tubal Ligation, Other Patient History - Other: None - Family History Mother Family History - Medical: Diabetes Type 2, Seizures Family History - Cardiac/Respiratory: Deep Vein Thrombosis, Hyperlipidemia, Myocardial Infarction Family History - Cancer: Cervical Grandmother-Maternal Family History - Cardiac/Respiratory: Deep Vein Thrombosis - Social History Living Situations: significant other Abuse History: No History of abuse Psych History: Hx of Anxiety, Hx of Depression, Current tx/ever been on anti- depressants or anti-anxiety meds Smoking Status: Former smoker Alcohol Use: none Drug Use: none - Immunizations Immunizations Up to Date: Yes Hx Pneumococcal Vaccination: No History of Influenza Vaccine: No Physical Exam - Physical Exam General Appearance: Present: anxious Eye Exam: Normal inspection: bilateral, PERRL: bilateral Ears, Nose, Throat: Present: normal ENT inspection Neck: Present: normal inspection Respiratory: Present: no respiratory distress Cardiovascular/Chest: Present: regular rate, rhythm Gastrointestinal/Abdominal: Present: soft, no organomegaly Back Exam: Present: normal inspection, normal range of motion Extremity Exam: Present: normal inspection Neurological Exam: Present: alert, oriented, normal mood/affect, straw boss II-XII nml as tested Skin Exam: Present: normal color, warm/dry ED Progress - Results and Orders Patient's Lab Results:: I have reviewed the patient's lab results. - Vital Signs Patient's Vital Signs:: I have reviewed the patient's vital signs. Vital Signs: Vital Signs 06/27/16 21:30 Temperature 37.1 C Pulse Rate 90 Respiratory 16 Rate Blood Pressure 109/48 O2 Sat by Pulse 100 Oximetry - EKG EKG: NSR EKG read: Interp. by me EKG Comments: LAD, rate 94 - X-Ray X-Ray #1 X-Ray: chest Interpretation: Interp. by me X-ray Comments: No acute findings on the chest x-ray. - Progress/Reassessment Progress Note-Subjective: 06/28/16 04:00 Several nebulizer treatments were given with some improvement. NTG tab did not have any effect on the chest pressure. A CT scan of the chest was unremarkable for a PE. Since the patient has had a previous ID and currently has intermittent chest pain she will need to have an ID ruled out. Thus far two Troponin levels have been negative. Since there was the issue of suicidal ideations she will be kept in the ED for until a third Troponin is done and then placement will be sought for her in a psychiatric hospital. She has stated that she would feel safer in a psychiatric hospital rather than going home. 06/28/16 04:02 06/28/16 07:36 No complaints of chest pain. - Transfer of Care Physician Sign Out: Levi Blakely Receiving Physician: Kahlil Kuo Pending Results: Labs Expected Disposition: Transfer Additional Notes: Perhaps have one more Troponin done while waiting for placement in a psychiatric hospital.
[2016-06-27 21:56] LABS: Venous Blood Gas HCO3 22.7 mmol/L (22.0-29.0); Venous Blood Gas pH 7.45 (7.32-7.43)
[2016-06-27 21:58] LABS: Hematocrit 38.4 % (37.0-47.0); Hemoglobin 12.8 gm/dL (12.5-16.0); Mean Corpuscular Hemoglobin 28.3 pg (27-31); Mean Corpuscular Hgb Conc 33.3 g/dl (32-36); Mean Platelet Volume 9.3 fl (6.0-9.5); Neutrophil # 9.3 K/mm3 (1.3-6.0); Neutrophil % 62.1 % (42-75.0); Platelet Count 338 K/mm3 (150-450); Red Blood Count 4.52 M/mm3 (4.2-5.4); Red Cell Distribution Width 12.7 % (11.5-14.0)
[2016-06-27 22:05] LABS: Urine Bilirubin Negative (NEGATIVE); Urine Blood Negative /ul (NEGATIVE); Urine Ketone Negative (NEGATIVE); Urine Nitrite Negative (NEGATIVE); Urine Protein Negative (NEGATIVE); Urine Specific Gravity 1.025 SP.GR. (1.005-1.010); Urine Urobilinogen Normal (NORMAL); Urine pH 6.5 pH (5.0-7.0)
[2016-06-27 22:18] LABS: ALT 33 U/L (19-67); AST 17 U/L (0-48); Albumin * 3.4 gm/dl (3.4-5.0); Alkaline Phosphatase * 141 U/L (50-170); Anion Gap 11.6 mmol/L (6.8-13.8); BUN/Creatinine Ratio 21.2 (9.0-21.6); Bilirubin, Total 0.2 mg/dL (0.0-1.1); Blood Urea Nitrogen 18 mg/dL (3-23); Ca. Corrected For Albumin 9.3 mg/dL (8.4-10.2); Calcium * 9.1 mg/dL (7.9-10.9); Carbon Dioxide 27.9 mmol/L (24-32.6); Chloride 102 mmol/L (97-106); Glucose * 100 mg/dL (70-110); Potassium 3.5 mmol/L (3.4-4.6); Sodium 138 mmol/L (132-142); Total Protein 8.3 gm/dL (6.2-8.2); Troponin I Less than 0.017 ng/ml (0.00-0.10)
[2016-06-27 22:19] LABS: Urine Amorphous Sediment Moderate - 2+ (NONE-FEW); Urine Appearance Clear; Urine Bacteria 2+; Urine Color Yellow; Urine RBC None Seen /hpf (0-5); Urine WBC 0-5 /hpf (0-5)
[2016-06-27] MEDS ORDERED: ALBUTEROL SULFATE 2.5 MG/0.5 ML VIAL.NEB IH ONE ×2 (22:19→23:32)
[2016-06-28] MEDS ORDERED: NITROGLYCERIN 0.4 MG/TAB BTL SL ONE (00:51)
[2016-06-28 07:00] LABS: Cocaine Ur Negative (NEGATIVE); Urine Barbiturate Negative (NEGATIVE); Urine Benzodiazepines Negative (NEGATIVE); Urine Opiates Negative (NEGATIVE); Urine PCP Negative (NEGATIVE); Urine THC Negative (NEGATIVE)
[2016-06-28 07:14] LABS: Troponin I Less than 0.017 ng/ml (0.00-0.10)
[2016-06-28 07:20] LABS: TSH * 1.457 uIU/mL (0.358-3.74)
[2016-06-28] MEDS ORDERED: NITROGLYCERIN 1 INCH PACKET TD ONE ×3 (07:53→07:57)
[2016-06-28 08:49] VITALS: BP 141/90
[2016-06-28] MEDS ORDERED: NITROFURANTOIN/NITROFURAN MAC 100 MG CAPSULE ONE (08:49)
[2016-06-28] MEDS ORDERED: NITROFURANTOIN/NITROFURAN MAC 100 MG CAPSULE PO SCH (09:00)
== END 2016-06-28 08:59 | disposition short-term general hospital (02) ==
LOC: ER 21:15
PROC: 4A033R1 Measurement of Arterial Saturation, Peripheral, Percutaneous Approach (ICD-10-PCS; principal; 2016-06-27)
DX: R45.851 Suicidal ideations (principal); I20.0 Unstable angina; R07.9 Chest pain, unspecified; Z86.711 Personal history of pulmonary embolism; Z79.01 Long term (current) use of anticoagulants; J44.9 Chronic obstructive pulmonary disease, unspecified; J45.909 Unspecified asthma, uncomplicated; I10 Essential (primary) hypertension; Z85.41 Personal history of malignant neoplasm of cervix uteri; F41.9 Anxiety disorder, unspecified; F32.9 Major depressive disorder, single episode, unspecified; Z87.891 Personal history of nicotine dependence

== ENCOUNTER 2016-07-11 21:18 | Emergency (ER) | payer OTHER ==
--- NOTE | 2016-07-11 22:57 | ERNOTE ---
GI Bleeding/Rectal Pain ER Presenting Symptoms: rectal bleeding Time Seen by Provider: 07/11/16 22:16 Source: patient Exam Limitations: no limitations Immunizations: IMMUNIZATION HX Immunizations Up to Date Yes History of Influenza Vaccine No Hx Pneumococcal Vaccination No Allergies/Adverse Reactions: Allergies Influenza Virus Vaccines Allergy (Intermediate, Verified 07/11/16 21:41) Hives ciprofloxacin [From Cipro] Allergy (Verified 07/11/16 21:41) ciprofloxacin HCl [From Cipro] Allergy (Verified 07/11/16 21:41) ibuprofen Allergy (Verified 07/11/16 21:41) latex Allergy (Verified 07/11/16 21:41) metformin Allergy (Verified 07/11/16 21:41) pantoprazole sodium [From Protonix] Allergy (Verified 07/11/16 21:41) Penicillins Allergy (Verified 07/11/16 21:41) Sulfa (Sulfonamide Antibiotics) Allergy (Verified 07/11/16 21:41) Home Medications: HOME MEDICATIONS Albuterol Sulfate [Albuterol Sulfate 0.63 MG/3ML] 0.63 mg IH Q4H 04/09/16 [Last Taken Unknown] Amitriptyline HCl [Elavil] 25 mg PO HS 04/09/16 [Last Taken Unknown] Budesonide/Formoterol Fumarate [Symbicort 80-4.5 Mcg Inhaler] 1 puff IH DAILY [Last Taken Unknown] Gabapentin [Gralise] 600 mg PO DAILY 04/09/16 [Last Taken Unknown] Hydrochlorothiazide [Hydrodiuril] 25 mg PO DAILY 04/09/16 [Last Taken Unknown] Insulin Glargine,Hum.rec.anlog [Lantus] 30 units SC HS 04/09/16 [Last Taken Unknown] Venlafaxine HCl [Effexor Xr] 150 mg PO DAILY 04/09/16 [Last Taken Unknown] traZODone HCL [Desyrel] 100 mg PO HS PRN 04/09/16 [Last Taken Unknown] Potassium 99 mg PO DAILY 05/13/16 [Last Taken Unknown] Dabigatran Etexilate Mesylate [Pradaxa] 150 mg PO DAILY 06/27/16 [Last Taken Unknown] Losartan Potassium [Cozaar] 50 mg PO DAILY 06/27/16 [Last Taken Unknown] Ranitidine HCl [Heartburn Relief] 150 mg PO DAILY 06/27/16 [Last Taken Unknown] Topiramate [Topamax] 50 mg PO DAILY 06/27/16 [Last Taken Unknown] Zolpidem Tartrate [Ambien] 10 mg PO DAILY 06/27/16 [Last Taken Unknown] Narrative: BRB per rectum x 6 days. improving somewhat. No abdominal pain Timing: constant - /getting somewhat better Quality/Severity: Present: moderate Nausea/Vomiting: Present: none Abdominal Pain: Present: LLQ Rectal Bleeding: Present: blood mixed with stool Associated Symptoms: Denies: black stools, tarry stools, constipation/hard stools Review of Systems - Review of Systems Constitutional: Present: no symptoms reported EYE: Present: no symptoms reported ENT: Present: no symptoms reported Respiratory: Absent: shortness of breath Cardiology: Present: no symptoms reported Gastrointestinal/Abdominal: Absent: nausea, vomiting, abdominal pain Genitourinary: Present: no symptoms reported Musculoskeletal: Present: no symptoms reported Skin: Present: no symptoms reported Neurological: Present: no symptoms reported Endocrine: Present: no symptoms reported Hematologic/Lymphatic: Present: no symptoms reported Psych: Present: no symptoms reported - Patient's Past Medical History Patient History - Medical: Anxiety, Diabetes Type 2, Seizures Patient History - Cardiac/Respiratory: Hypertension, Hyperlipidemia, Pulmonary Embolism Patient History - Cancer: Cervical, Other Patient History - Surgical Procedures: Hysterectomy, Tubal Ligation, Other Patient History - Other: None - Family History Mother Family History - Medical: Diabetes Type 2, Seizures Family History - Cardiac/Respiratory: Deep Vein Thrombosis, Hyperlipidemia, Myocardial Infarction Family History - Cancer: Cervical Grandmother-Maternal Family History - Cardiac/Respiratory: Deep Vein Thrombosis - Social History Living Situations: home Abuse History: No History of abuse Psych History: Hx of Anxiety, Hx of Depression, Current tx/ever been on anti- depressants or anti-anxiety meds Smoking Status: Never smoker Do you dip or chew tobacco: No Alcohol Use: none Drug Use: none - Immunizations Immunizations Up to Date: Yes Hx Pneumococcal Vaccination: No History of Influenza Vaccine: No Physical Exam - Physical Exam General Appearance: Present: wd/wn, alert, no apparent distress Neck: Present: normal inspection Respiratory: Present: no respiratory distress Gastrointestinal/Abdominal: Present: normal bowel sounds, tenderness - LLQ and LUQ. Absent: guarding, rebound Back Exam: Present: normal inspection, normal range of motion, no CVA tenderness Extremity Exam: Present: normal inspection, non-tender, normal range of motion Neurological Exam: Present: alert, oriented, normal mood/affect Skin Exam: Present: normal color, warm/dry ED Progress - Results and Orders Patient's Lab Results:: I have reviewed the patient's lab results. Results and Orders: Laboratory Tests 07/11/16 07/11/16 07/11/16 22:30 22:30 23:13 WBC 11.8 H Hgb 12.6 Hct 37.2 Plt Count 335 Sodium Potassium Chloride Carbon Dioxide Anion Gap BUN Creatinine Est GFR (Non-Af Amer) BUN/Creatinine Ratio Random Glucose Calcium Total Bilirubin AST ALT Alkaline Phosphatase Total Protein Albumin Urine Color Yellow Urine Appearance Clear Urine pH 6.0 Ur Specific [place] 1.025 Urine Protein Negative Urine Glucose (UA) Negative Urine Ketones Negative Urine Blood Negative Urine Nitrate Negative Urine Bilirubin Negative Urine Urobilinogen Normal Ur Leukocyte Esterase Negative Urine RBC None seen Urine WBC None seen Ur Epithelial Cells 5-10 H Calcium Oxalate Crystal Many - 3+ H Urine Bacteria Trace Hyaline Casts Trace Urine Culture Comments No culture indicated Stool Occult Blood Positive H 07/11/16 23:13 WBC Hgb Hct Plt Count Sodium 141 Potassium 3.4 Chloride 102 Carbon Dioxide 27.6 Anion Gap 14.8 H BUN 17 Creatinine 0.84 Est GFR (Non-Af Amer) 79 BUN/Creatinine Ratio 20.2 Random Glucose 107 Calcium 9.3 Total Bilirubin 0.2 AST 21 ALT 29 Alkaline Phosphatase 152 Total Protein 8.6 H Albumin 3.6 Urine Color Urine Appearance Urine pH Ur Specific [place] Urine Protein Urine Glucose (UA) Urine Ketones Urine Blood Urine Nitrate Urine Bilirubin Urine Urobilinogen Ur Leukocyte Esterase Urine RBC Urine WBC Ur Epithelial Cells Calcium Oxalate Crystal Urine Bacteria Hyaline Casts Urine Culture Comments Stool Occult Blood - Vital Signs Patient's Vital Signs:: I have reviewed the patient's vital signs. Vital Signs: Vital Signs 07/11/16 21:35 Temperature 36.8 C Pulse Rate 94 Respiratory 16 Rate Blood Pressure 141/90 O2 Sat by Pulse 99 Oximetry - X-Ray X-Ray #1 X-Ray: abdomen Interpretation: Interp. by me X-ray Comments: Non-specific bowel gas pattern, no obstruction - Progress/Reassessment Chief Complaint: Rectal Bleeding Departure Clinical Impression: Hemorrhoids, internal, with bleeding - Departure Disposition: Home Follow Up Needed Condition: Good Instructions: Hemorrhoids, [id number] Additional Instructions: try using tucks or preparation H regularly. See Dr. Coles if not improving Referrals: Daisy Coles DO [Primary Care Provider] -
[2016-07-11 23:09] LABS: Urine Bilirubin Negative (NEGATIVE); Urine Blood Negative /ul (NEGATIVE); Urine Ketone Negative (NEGATIVE); Urine Nitrite Negative (NEGATIVE); Urine Protein Negative (NEGATIVE); Urine Specific Gravity 1.025 SP.GR. (1.005-1.010); Urine Urobilinogen Normal (NORMAL)
[2016-07-11 23:13] LABS: Urine Appearance Clear; Urine Bacteria TRACE; Urine Color Yellow; Urine Hyaline Cast TRACE /LPF; Urine RBC None Seen /hpf (0-5); Urine WBC None Seen /hpf (0-5)
[2016-07-11 23:19] LABS: Hematocrit 37.2 % (37.0-47.0); Hemoglobin 12.6 gm/dL (12.5-16.0); Mean Cell Volume 84.7 fl (78-100); Mean Corpuscular Hemoglobin 28.7 pg (27-31); Mean Corpuscular Hgb Conc 33.9 g/dl (32-36); Mean Platelet Volume 9.4 fl (6.0-9.5); Neutrophil # 6.7 K/mm3 (1.3-6.0); Neutrophil % 56.3 % (42-75.0); Platelet Count 335 K/mm3 (150-450); Red Blood Count 4.39 M/mm3 (4.2-5.4); Red Cell Distribution Width 12.9 % (11.5-14.0); White Blood Count 11.8 K/mm3 (4.0-10.5)
[2016-07-11 23:33] LABS: Albumin * 3.6 gm/dl (3.4-5.0); Anion Gap 14.8 mmol/L (6.8-13.8); BUN/Creatinine Ratio 20.2 (9.0-21.6); Bilirubin, Total 0.2 mg/dL (0.0-1.1); Ca. Corrected For Albumin 9.3 mg/dL (8.4-10.2); Calcium * 9.3 mg/dL (7.9-10.9); Carbon Dioxide 27.6 mmol/L (24-32.6); Potassium 3.4 mmol/L (3.4-4.6); Total Protein 8.6 gm/dL (6.2-8.2)
[2016-07-12 01:55] VITALS: BP 131/84
== END 2016-07-12 01:30 | disposition home or self-care (01) ==
LOC: ER 21:18
DX: Z85.41 Personal history of malignant neoplasm of cervix uteri (principal); K64.8 Other hemorrhoids

== ENCOUNTER 2016-07-20 20:30 | Emergency (ER) | payer OTHER ==
--- NOTE | 2016-07-20 21:45 | ERNOTE ---
ER Female HPI Stated Complaint: VOMITTING, SOB, CANT URINATE Time Seen by Provider: 07/20/16 21:38 Source: patient Exam Limitations: no limitations Immunizations: IMMUNIZATION HX Immunizations Up to Date Yes History of Influenza Vaccine Yes Hx Pneumococcal Vaccination No Allergies/Adverse Reactions: Allergies Influenza Virus Vaccines Allergy (Intermediate, Verified 07/20/16 20:50) Hives ciprofloxacin [From Cipro] Allergy (Verified 07/20/16 20:50) ciprofloxacin HCl [From Cipro] Allergy (Verified 07/20/16 20:50) ibuprofen Allergy (Verified 07/20/16 20:50) latex Allergy (Verified 07/20/16 20:50) metformin Allergy (Verified 07/20/16 20:50) pantoprazole sodium [From Protonix] Allergy (Verified 07/20/16 20:50) Penicillins Allergy (Verified 07/20/16 20:50) Sulfa (Sulfonamide Antibiotics) Allergy (Verified 07/20/16 20:50) Home Medications: HOME MEDICATIONS Albuterol Sulfate [Albuterol Sulfate 0.63 MG/3ML] 0.63 mg IH Q4H 04/09/16 [Last Taken Unknown] Amitriptyline HCl [Elavil] 25 mg PO HS 04/09/16 [Last Taken Unknown] Budesonide/Formoterol Fumarate [Symbicort 80-4.5 Mcg Inhaler] 1 puff IH BID [Last Taken Unknown] Gabapentin [Gralise] 600 mg PO TID 04/09/16 [Last Taken Unknown] Hydrochlorothiazide [Hydrodiuril] 25 mg PO DAILY 04/09/16 [Last Taken Unknown] Insulin Glargine,Hum.rec.anlog [Lantus] 10 units SC ACHS 04/09/16 [Last Taken Unknown] Venlafaxine HCl [Effexor Xr] 75 mg PO DAILY 04/09/16 [Last Taken Unknown] Dabigatran Etexilate Mesylate [Pradaxa] 150 mg PO BID 06/27/16 [Last Taken Unknown] Losartan Potassium [Cozaar] 50 mg PO DAILY 06/27/16 [Last Taken Unknown] Ranitidine HCl [Heartburn Relief] 150 mg PO BID 06/27/16 [Last Taken Unknown] Topiramate [Topamax] 50 mg PO DAILY 06/27/16 [Last Taken Unknown] Clonazepam 2 mg PO BID 07/20/16 [Last Taken Unknown] QUEtiapine FUMARATE [Seroquel] 100 mg PO HS 07/20/16 [Last Taken Unknown] - History of Present Illness Narrative: pt is here for three days of nausea and vomiting and complains of abd pain, mostly in the right lower quadrant. Unable to have BM and unable to urinate. pt states she still has her appendix Review of Systems - Review of Systems Constitutional: Present: no symptoms reported EYE: Present: no symptoms reported ENT: Present: no symptoms reported Respiratory: Present: no symptoms reported Cardiology: Present: no symptoms reported Gastrointestinal/Abdominal: Present: See HPI Genitourinary: Present: no symptoms reported Musculoskeletal: Present: no symptoms reported Skin: Present: no symptoms reported - Patient's Past Medical History Patient History - Medical: Anxiety, Bipolar, Diabetes Type 2, Seizures Patient History - Cardiac/Respiratory: Hypertension, Hyperlipidemia, Pulmonary Embolism Patient History - Cancer: Cervical, Other Patient History - Surgical Procedures: Hysterectomy, Tubal Ligation, Other Patient History - Other: None - Family History Mother Family History - Medical: Diabetes Type 2, Seizures Family History - Cardiac/Respiratory: Deep Vein Thrombosis, Hyperlipidemia, Myocardial Infarction Family History - Cancer: Cervical Grandmother-Maternal Family History - Cardiac/Respiratory: Deep Vein Thrombosis - Social History Living Situations: home Abuse History: No History of abuse Psych History: Hx of Anxiety, Hx of Depression, Current tx/ever been on anti- depressants or anti-anxiety meds Smoking Status: Never smoker Alcohol Use: none Drug Use: none - Immunizations Immunizations Up to Date: Yes Hx Pneumococcal Vaccination: No History of Influenza Vaccine: Yes Physical Exam - Physical Exam General Appearance: Present: wd/wn, alert, no apparent distress Respiratory: Present: no respiratory distress, normal breath sounds, no accessory muscle use, chest nontender, lungs clear Cardiovascular/Chest: Present: regular rate, rhythm, no murmur, normal peripheral pulses Gastrointestinal/Abdominal: Present: other - abdomen is very obese so exam is a challenge. However when palpated, pt has right lower quadrant rebound and direct tenderness. ED Progress - Results and Orders Patient's Lab Results:: I have reviewed the patient's lab results. - Vital Signs Patient's Vital Signs:: I have reviewed the patient's vital signs. Vital Signs: Vital Signs 07/20/16 20:43 Temperature 37.2 C Pulse Rate 112 H Respiratory 20 Rate Blood Pressure 142/96 O2 Sat by Pulse 99 Oximetry - CT/Ultrasound CT/Ultrasound Narrative: CT is negative for appy and SBO - Progress/Reassessment Chief Complaint: Genitourinary Problem Departure Clinical Impression: Abdominal pain Qualifiers: Abdominal location: right lower quadrant Qualified Code(s): R10.31 - Right lower quadrant pain - Departure Disposition: Home self-care Instructions: Abdominal Pain, Adult, [id number] Referrals: Daisy Coles DO [Primary Care Provider] -
[2016-07-20 21:53] LABS: Hematocrit 37.9 % (37.0-47.0); Hemoglobin 12.9 gm/dL (12.5-16.0); Mean Cell Volume 84.6 fl (78-100); Mean Corpuscular Hemoglobin 28.8 pg (27-31); Mean Platelet Volume 9.3 fl (6.0-9.5); Neutrophil # 4.7 K/mm3 (1.3-6.0); Neutrophil % 55.1 % (42-75.0); Platelet Count 293 K/mm3 (150-450); Red Blood Count 4.48 M/mm3 (4.2-5.4); Red Cell Distribution Width 13.2 % (11.5-14.0); White Blood Count 8.5 K/mm3 (4.0-10.5)
[2016-07-20 22:18] LABS: Albumin * 2.9 gm/dl (3.4-5.0); Anion Gap 11.5 mmol/L (6.8-13.8); BUN/Creatinine Ratio 12.2 (9.0-21.6); Bilirubin, Total 0.2 mg/dL (0.0-1.1); Ca. Corrected For Albumin 9.5 mg/dL (8.4-10.2); Calcium * 8.9 mg/dL (7.9-10.9); Carbon Dioxide 28.1 mmol/L (24-32.6); Potassium 3.6 mmol/L (3.4-4.6); Total Protein 7.2 gm/dL (6.2-8.2)
[2016-07-20] MEDS ORDERED: DIATRIZOATE MEGLU/DIATRIZO SOD 30 ML BTL ONE (22:20)
[2016-07-20 22:22] LABS: Urine Bilirubin Negative (NEGATIVE); Urine Blood Negative /ul (NEGATIVE); Urine Ketone Negative (NEGATIVE); Urine Nitrite Negative (NEGATIVE); Urine Protein Negative (NEGATIVE); Urine Urobilinogen Normal (NORMAL); Urine pH 8.5 pH (5.0-7.0)
[2016-07-20] MEDS: DIATRIZOATE MEGLU/DIATRIZO SOD 30 ML BTL PO ONE (22:23)
[2016-07-20 22:26] LABS: Urine Amorphous Sediment Few - 1+ (NONE-FEW); Urine Appearance Slightly Cloudy; Urine Bacteria 1+; Urine Color Yellow; Urine Mucus TRACE; Urine RBC None Seen /hpf (0-5); Urine WBC None Seen /hpf (0-5)
[2016-07-20] MEDS ORDERED: ONDANSETRON HCL/PF 2 MG/ML VIAL ONE (22:37)
[2016-07-20] MEDS: ONDANSETRON HCL/PF 2 MG/ML VIAL IV ONE (22:40)
[2016-07-21] MEDS ORDERED: KETOROLAC TROMETHAMINE 30 MG/ML VIAL ONE (01:15)
[2016-07-21] MEDS: KETOROLAC TROMETHAMINE 30 MG/ML VIAL IV ONE (01:17)
[2016-07-21 01:48] VITALS: BP 129/77
== END 2016-07-21 01:35 | disposition home or self-care (01) ==
LOC: ER 20:30
DX: R10.31 Right lower quadrant pain (principal); G40.409 Other generalized epilepsy and epileptic syndromes, not intractable, without status epilepticus; I10 Essential (primary) hypertension; Z85.41 Personal history of malignant neoplasm of cervix uteri; F41.9 Anxiety disorder, unspecified; F31.70 Bipolar disorder, currently in remission, most recent episode unspecified

== ENCOUNTER 2016-07-21 20:49 | Emergency (ER) | payer OTHER ==
[2016-07-21] MEDS ORDERED: PROMETHAZINE HCL 25 MG in DEXTROSE 5 % IN WATER 50 ML IM ONE ×2 (21:23)
[2016-07-21] MEDS ORDERED: DICYCLOMINE HCL 10 MG/ML AMPUL IM ONE ×2 (21:24→21:47)
[2016-07-21 21:44] LABS: Hematocrit 39.6 % (37.0-47.0); Hemoglobin 13.2 gm/dL (12.5-16.0); Mean Cell Volume 85.2 fl (78-100); Mean Corpuscular Hemoglobin 28.4 pg (27-31); Mean Corpuscular Hgb Conc 33.3 g/dl (32-36); Mean Platelet Volume 9.1 fl (6.0-9.5); Neutrophil # 4.7 K/mm3 (1.3-6.0); Neutrophil % 53.4 % (42-75.0); Platelet Count 311 K/mm3 (150-450); Red Blood Count 4.65 M/mm3 (4.2-5.4); Red Cell Distribution Width 13.2 % (11.5-14.0); White Blood Count 8.7 K/mm3 (4.0-10.5)
[2016-07-21] MEDS ORDERED: PROMETHAZINE HCL 25 MG/ML AMPUL ONE (21:47)
--- NOTE | 2016-07-21 21:52 | ERNOTE ---
Medical Problem HPI - Narrative Date of Service: 07/21/16 - General Chief Complaint: Nausea/Vomiting Time Seen by Provider: 07/21/16 21:18 Source: patient Exam Limitations: no limitations - Immun/Allergies/Home Medications Immunizations: IMMUNIZATION HX Immunizations Up to Date Yes History of Influenza Vaccine No Hx Pneumococcal Vaccination No Allergies/Adverse Reactions: Allergies Influenza Virus Vaccines Allergy (Intermediate, Verified 07/21/16 21:10) Hives ciprofloxacin [From Cipro] Allergy (Verified 07/21/16 21:10) ciprofloxacin HCl [From Cipro] Allergy (Verified 07/21/16 21:10) ibuprofen Allergy (Verified 07/21/16 21:10) latex Allergy (Verified 07/21/16 21:10) metformin Allergy (Verified 07/21/16 21:10) pantoprazole sodium [From Protonix] Allergy (Verified 07/21/16 21:10) Penicillins Allergy (Verified 07/21/16 21:10) Sulfa (Sulfonamide Antibiotics) Allergy (Verified 07/21/16 21:10) Home Medications: HOME MEDICATIONS Albuterol Sulfate [Albuterol Sulfate 0.63 MG/3ML] 0.63 mg IH Q4H 04/09/16 [Last Taken Unknown] Amitriptyline HCl [Elavil] 25 mg PO HS 04/09/16 [Last Taken Unknown] Budesonide/Formoterol Fumarate [Symbicort 80-4.5 Mcg Inhaler] 1 puff IH BID [Last Taken Unknown] Gabapentin [Gralise] 600 mg PO TID 04/09/16 [Last Taken Unknown] Hydrochlorothiazide [Hydrodiuril] 25 mg PO DAILY 04/09/16 [Last Taken Unknown] Insulin Glargine,Hum.rec.anlog [Lantus] 10 units SC ACHS 04/09/16 [Last Taken Unknown] Venlafaxine HCl [Effexor Xr] 75 mg PO DAILY 04/09/16 [Last Taken Unknown] Dabigatran Etexilate Mesylate [Pradaxa] 150 mg PO BID 06/27/16 [Last Taken Unknown] Losartan Potassium [Cozaar] 50 mg PO DAILY 06/27/16 [Last Taken Unknown] Ranitidine HCl [Heartburn Relief] 150 mg PO BID 06/27/16 [Last Taken Unknown] Topiramate [Topamax] 50 mg PO DAILY 06/27/16 [Last Taken Unknown] Clonazepam 2 mg PO BID 07/20/16 [Last Taken Unknown] QUEtiapine FUMARATE [Seroquel] 100 mg PO HS 07/20/16 [Last Taken Unknown] Dicyclomine HCl [Bentyl] 10 - 20 mg PO TID #30 tab 07/21/16 [Last Taken Unknown] metroNIDAZOLE [Flagyl] 500 mg PO QID #40 tab 07/21/16 [Last Taken Unknown] - History of Present History Narrative: Pt. comes in with c/o diffuse abdominal pain, diarrhea, nausea, and vomiting for two days. Pt. also states that she has chest pain sub sternal that radiates to her LUQ. Pt. states that she has had a fever as well and is having difficulty keeping foods down but not fluids. Pt. has been seen multiple times for this same symptoms recently without any significant diagnosis. Review of Systems - Review of Systems Constitutional: Present: fever. Absent: chills, weakness, fatigue, malaise EYE: Present: no symptoms reported ENT: Present: no symptoms reported Respiratory: Present: no symptoms reported. Absent: shortness of breath, cough , wheezing Cardiology: Present: chest pain. Absent: palpitations, edema Gastrointestinal/Abdominal: Present: nausea, vomiting, diarrhea, abdominal pain , eating less. Absent: constipation, drinking less Genitourinary: Present: no symptoms reported. Absent: frequency, decreased urinary output Musculoskeletal: Present: no symptoms reported. Absent: back pain, joint pain Skin: Present: no symptoms reported. Absent: rash, change in color, change in hair/nails Neurological: Present: emotional problems - preexisting. Absent: headache, dizziness/light-headedness, numbness, tingling All Other Systems: All systems neg except as marked - Patient's Past Medical History Patient History - Medical: Anxiety, Bipolar, Diabetes Type 2, Seizures Patient History - Cardiac/Respiratory: Hypertension, Hyperlipidemia, Pulmonary Embolism Patient History - Cancer: Cervical, Other Patient History - Surgical Procedures: Appendectomy, Hysterectomy, Tubal Ligation, Other Patient History - Other: None - Family History Mother Family History - Medical: Diabetes Type 2, Seizures Family History - Cardiac/Respiratory: Deep Vein Thrombosis, Hyperlipidemia, Myocardial Infarction Family History - Cancer: Cervical Grandmother-Maternal Family History - Cardiac/Respiratory: Deep Vein Thrombosis - Social History Living Situations: spouse Abuse History: No History of abuse Psych History: Hx of Anxiety, Hx of Depression, Current tx/ever been on anti- depressants or anti-anxiety meds Smoking Status: Former smoker Have you smoked in the past 12 months: No Do you dip or chew tobacco: No Alcohol Use: none Drug Use: none - Immunizations Immunizations Up to Date: Yes Hx Pneumococcal Vaccination: No History of Influenza Vaccine: No Physical Exam - Physical Exam General Appearance: Present: wd/wn, alert, no apparent distress Eye Exam: Normal inspection: bilateral, PERRL: bilateral, EOMI: bilateral Ears, Nose, Throat: Present: normal ENT inspection, normal pharynx Neck: Present: normal inspection, nontender. Absent: lymphadenopathy (R), lymphadenopathy (L) Respiratory: Present: no respiratory distress, normal breath sounds, no accessory muscle use, chest nontender, lungs clear Cardiovascular/Chest: Present: regular rate, rhythm, no murmur, normal peripheral pulses Gastrointestinal/Abdominal: Present: normal bowel sounds, nondistended, soft, no organomegaly, tenderness - diffuse non rebound, other - obese. Absent: rebound Rectal Exam: Present: nontender, normal rectal tone, hemorrhoids - external not actively bleeding but evidence of dried blood near rectum Back Exam: Present: normal inspection, normal range of motion, no CVA tenderness , no vertebral tenderness Extremity Exam: Present: normal inspection, non-tender, normal range of motion, no edema Neurological Exam: Present: alert, oriented, other - tearful Skin Exam: Present: normal color, warm/dry. Absent: pallor, skin rash ED Progress - Date and Time Seen: Date and Time: 07/21/16 21:49 Reviewed labs from yesterday and they are unremarkable. 07/21/16 22:26 Do not feel any more testing is warranted as pt. needs treatment for possible colitis and follow up with PCP for referral for GI. - Results and Orders Patient's Lab Results:: I have reviewed the patient's lab results. - Vital Signs Patient's Vital Signs:: I have reviewed the patient's vital signs. Vital Signs: Vital Signs 07/21/16 21:02 Temperature 36.8 C Pulse Rate 111 H Respiratory 16 Rate Blood Pressure 124/78 O2 Sat by Pulse 97 Oximetry - Progress/Reassessment Chief Complaint: Nausea/Vomiting Progress:: Improved Departure - Departure Clinical Impression: Gastroenteritis and colitis, toxic, Hemorrhoids, internal, with bleeding Disposition: Home self-care Condition: Good Instructions: Clostridium Difficile Infection, [id number], Hemorrhoids, Easy- to-Read Additional Instructions: Please follow up with Dr Coles in 2-3 days. Referrals: Daisy Coles DO [Primary Care Provider] - Prescriptions: Dicyclomine HCl [Bentyl] 10 - 20 mg PO TID #30 tab metroNIDAZOLE [Flagyl] 500 mg PO QID #40 tab
[2016-07-21 22:28] LABS: Cocaine Ur Negative (NEGATIVE); Urine Barbiturate Negative (NEGATIVE); Urine Benzodiazepines Negative (NEGATIVE); Urine Opiates Negative (NEGATIVE); Urine PCP Negative (NEGATIVE); Urine THC Negative (NEGATIVE)
[2016-07-21 22:42] VITALS: BP 124/76
[2016-07-28 22:37] LABS: C.dificile Culture NOT ISOLATED
== END 2016-07-21 22:36 | disposition home or self-care (01) ==
LOC: ER 20:49
DX: K52.1 Toxic gastroenteritis and colitis (principal); K64.8 Other hemorrhoids; Z85.41 Personal history of malignant neoplasm of cervix uteri; F31.70 Bipolar disorder, currently in remission, most recent episode unspecified; G40.409 Other generalized epilepsy and epileptic syndromes, not intractable, without status epilepticus; F41.9 Anxiety disorder, unspecified; I10 Essential (primary) hypertension

== ENCOUNTER 2016-07-22 15:46 | Emergency (ER) | payer OTHER ==
--- NOTE | 2016-07-22 16:47 | ERNOTE ---
Medical Problem HPI - Narrative Date of Service: 07/22/16 - General Chief Complaint: Nausea/Vomiting Time Seen by Provider: 07/22/16 16:41 Source: patient - Immun/Allergies/Home Medications Immunizations: IMMUNIZATION HX Immunizations Up to Date Yes History of Influenza Vaccine No Hx Pneumococcal Vaccination No Allergies/Adverse Reactions: Allergies Influenza Virus Vaccines Allergy (Intermediate, Verified 07/21/16 21:10) Hives ciprofloxacin [From Cipro] Allergy (Verified 07/21/16 21:10) ciprofloxacin HCl [From Cipro] Allergy (Verified 07/21/16 21:10) ibuprofen Allergy (Verified 07/21/16 21:10) latex Allergy (Verified 07/21/16 21:10) metformin Allergy (Verified 07/21/16 21:10) pantoprazole sodium [From Protonix] Allergy (Verified 07/21/16 21:10) Penicillins Allergy (Verified 07/21/16 21:10) Sulfa (Sulfonamide Antibiotics) Allergy (Verified 07/21/16 21:10) Home Medications: HOME MEDICATIONS Albuterol Sulfate [Albuterol Sulfate 0.63 MG/3ML] 0.63 mg IH Q4H 04/09/16 [Last Taken Unknown] Amitriptyline HCl [Elavil] 25 mg PO HS 04/09/16 [Last Taken Unknown] Budesonide/Formoterol Fumarate [Symbicort 80-4.5 Mcg Inhaler] 1 puff IH BID [Last Taken Unknown] Gabapentin [Gralise] 600 mg PO TID 04/09/16 [Last Taken Unknown] Hydrochlorothiazide [Hydrodiuril] 25 mg PO DAILY 04/09/16 [Last Taken Unknown] Insulin Glargine,Hum.rec.anlog [Lantus] 10 units SC ACHS 04/09/16 [Last Taken Unknown] Venlafaxine HCl [Effexor Xr] 75 mg PO DAILY 04/09/16 [Last Taken Unknown] Dabigatran Etexilate Mesylate [Pradaxa] 150 mg PO BID 06/27/16 [Last Taken Unknown] Losartan Potassium [Cozaar] 50 mg PO DAILY 06/27/16 [Last Taken Unknown] Ranitidine HCl [Heartburn Relief] 150 mg PO BID 06/27/16 [Last Taken Unknown] Topiramate [Topamax] 50 mg PO DAILY 06/27/16 [Last Taken Unknown] Clonazepam 2 mg PO BID 07/20/16 [Last Taken Unknown] QUEtiapine FUMARATE [Seroquel] 100 mg PO HS 07/20/16 [Last Taken Unknown] Dicyclomine HCl [Bentyl] 10 - 20 mg PO TID #30 tab 07/21/16 [Last Taken Unknown] metroNIDAZOLE [Flagyl] 500 mg PO QID #40 tab 07/21/16 [Last Taken Unknown] Prochlorperazine [Compazine] 25 mg RC Q12H PRN #4 supp.rect 07/22/16 [Last Taken Unknown] - History of Present History Narrative: C/O OF N AND V AND D FOR 5 DAYS. SHE IS A DIABETIC. SHE HAS BEEN HERE IN THE ER FOR THE PAST 3 DAYS. AT HER FIRST PRESENTATION FOR THIS PROBLEM ON THE SHE HAD STATED THAT IT HAS BEEN GOING ON FOR 3 DAYS. HER LABS ON , AND WERE UNREMARKABLE WITH NO SIGN OF DEHYDRATION ON BLOOD WORK OR UA'S . LAST NIGHT A DIARRHEA STOOL WAS ALREADY COLLECTED AND SENT FOR CULTURE AND C DIFF. SHE WAS DISCHARGED C. DIFF AND GIVEN BENTYL AND FLAGYL. RESULTS ON THOSE TESTS ARE PENDING. SHE RETURNS WITH THE SAME COMPLAINTS SAYING SHE HAS VOMITED X 2 TODAY AND HAD 3 WATERY STOOLS. SHE CLAIMS THAT SHE HAS NOT BEEN EATING OR DRINKING. ALSO STATES SHE CAN NOT URINATE SHE COMPLAINED ON HER PRIOR TWO VISITS. THOUGH URINE WAS COLLECTED AND CULTURE WAS NEG ON A SAMPLE FROM . SHE ALSO HAD A NEGATIVE DRUG SCREEN ON AND 11 JULY WHEN ALSO HERE FOR A DIFFERENT PROBLEM. Review of Systems - Review of Systems Constitutional: Present: See HPI, recent illness Gastrointestinal/Abdominal: Present: See HPI, nausea, vomiting, diarrhea, eating less, drinking less Genitourinary: Present: See HPI Neurological: Present: anxiety, depressed, emotional problems Psych: Present: anxiety, depressed All Other Systems: All systems neg except as marked - Patient's Past Medical History Patient History - Medical: Anxiety, Bipolar, Diabetes Type 2, Seizures Patient History - Cardiac/Respiratory: Hypertension, Hyperlipidemia, Pulmonary Embolism, Peripheral Vascular Disease Patient History - Cancer: Cervical, Other Patient History - Surgical Procedures: Appendectomy, Hysterectomy, Tubal Ligation, Other Patient History - Other: None LMP (females 10-50): unknown - Family History Mother Family History - Medical: Diabetes Type 2, Seizures Family History - Cardiac/Respiratory: Deep Vein Thrombosis, Hyperlipidemia, Myocardial Infarction Family History - Cancer: Cervical Grandmother-Maternal Family History - Cardiac/Respiratory: Deep Vein Thrombosis - Social History Living Situations: significant other Abuse History: No History of abuse Psych History: Hx of Anxiety, Hx of Depression, Hx of Bipolar Disorder, Current tx/ever been on anti-depressants or anti-anxiety meds Smoking Status: Former smoker Have you smoked in the past 12 months: Yes Do you dip or chew tobacco: No Alcohol Use: none Drug Use: none - Immunizations Immunizations Up to Date: Yes Hx Pneumococcal Vaccination: No History of Influenza Vaccine: No Physical Exam - Physical Exam General Appearance: Present: wd/wn, alert, no apparent distress - OBESE LADY WITH NO OVERT SIGNS OF ILLNESS VSS. WT TODAY IN THE ER =121.66KG Eye Exam: Normal inspection: bilateral, PERRL: bilateral, EOMI: bilateral Ears, Nose, Throat: Present: normal ENT inspection, other - MOIST MUCOUS MEMBRANES. Neck: Present: normal inspection Respiratory: Present: no respiratory distress, normal breath sounds, no accessory muscle use Cardiovascular/Chest: Present: regular rate, rhythm, no murmur Gastrointestinal/Abdominal: Present: nontender, soft, no organomegaly Back Exam: Present: no CVA tenderness Extremity Exam: Present: normal inspection Neurological Exam: Present: alert, oriented Skin Exam: Present: normal color ED Progress - Results and Orders Patient's Lab Results:: I have reviewed the patient's lab results. Results and Orders: CBC AND CMP = NL. CRP = 1.6 , ETOH = NEG. URINE PENDING . BLADDER SCAN = 183 - Vital Signs Vital Signs: Vital Signs 07/22/16 07/22/16 15:57 16:26 Temperature 37.1 C 37.2 C Pulse Rate 95 93 Respiratory 12 16 Rate Blood Pressure 127/78 119/79 O2 Sat by Pulse 96 94 Oximetry - Progress/Reassessment Chief Complaint: Nausea/Vomiting Progress:: Improved - THE PT HAD NO VOMITING OR DIARRHEA WHILE HERE IN THE ER. Departure - Departure Clinical Impression: Vomiting and diarrhea Disposition: Home Follow Up Needed Condition: Good Instructions: Nausea, Adult, Diarrhea, Adult, [id number] Additional Instructions: CLEAR LIQUID DIET ONLY UNTIL NO MORE DIARRHEA FOR 8 HOURS , THEN BEGIN TO WITH B.R.A.T. DIET ( BANANAS, RICE, APPLESAUCE, TOAST OR SALTINES) . IF THAT GOES WELL THE GRADUALLY RESUME YOUR REGULAR DIET. FOLLOW UP WITH YOUR FAMILY DOCTOR ON SUNDAY . USE THE COMPAZINE SUPPOSITORIES FOR VOMITING DIRECTED IF NEEDED. Referrals: Daisy Coles DO [Primary Care Provider] - Prescriptions: Prochlorperazine [Compazine] 25 mg RC Q12H PRN #4 supp.rect PRN Reason: Vomiting
[2016-07-22] MEDS ORDERED: NORMAL SALINE 1,000 ML IV ONE (16:51)
[2016-07-22] MEDS ORDERED: PROCHLORPERAZINE EDISYLATE 5 MG/ML VIAL IV ONE (16:51)
[2016-07-22] MEDS ORDERED: PROCHLORPERAZINE EDISYLATE 5 MG/ML VIAL ONE (17:03)
[2016-07-22 17:11] LABS: Hematocrit 39.8 % (37.0-47.0); Hemoglobin 13.3 gm/dL (12.5-16.0); Mean Cell Volume 85.4 fl (78-100); Mean Corpuscular Hemoglobin 28.5 pg (27-31); Mean Corpuscular Hgb Conc 33.4 g/dl (32-36); Mean Platelet Volume 9.3 fl (6.0-9.5); Neutrophil # 4.1 K/mm3 (1.3-6.0); Neutrophil % 49.3 % (42-75.0); Platelet Count 313 K/mm3 (150-450); Red Blood Count 4.66 M/mm3 (4.2-5.4); Red Cell Distribution Width 13.1 % (11.5-14.0); White Blood Count 8.3 K/mm3 (4.0-10.5)
[2016-07-22 17:24] LABS: ALT 55 U/L (19-67); AST 36 U/L (0-48); Albumin * 3.1 gm/dl (3.4-5.0); Alkaline Phosphatase * 160 U/L (50-170); BUN/Creatinine Ratio 11.3 (9.0-21.6); Bilirubin, Total 0.3 mg/dL (0.0-1.1); Blood Urea Nitrogen 9 mg/dL (3-23); CRP 1.6 mg/dL (0.0-0.9); Ca. Corrected For Albumin 9.1 mg/dL (8.4-10.2); Calcium * 8.7 mg/dL (7.9-10.9); Carbon Dioxide 29.2 mmol/L (24-32.6); Chloride 102 mmol/L (97-106); Glucose * 100 mg/dL (70-110); Lipase 108 U/L (73-393); Potassium 3.2 mmol/L (3.4-4.6); Sodium 140 mmol/L (132-142); Total Protein 7.5 gm/dL (6.2-8.2)
[2016-07-22 19:19] VITALS: BP 118/80
== END 2016-07-22 19:30 | disposition home or self-care (01) ==
LOC: ER 15:46
PROC: BT40ZZZ Ultrasonography of Bladder (ICD-10-PCS; principal; 2016-07-22)
DX: R11.10 Vomiting, unspecified (principal); R19.7 Diarrhea, unspecified; Z87.891 Personal history of nicotine dependence; Z86.711 Personal history of pulmonary embolism; Z85.41 Personal history of malignant neoplasm of cervix uteri
CPT/HCPCS: 36415; 51798; 80053; 83690; 85025; 86140; 96374; 99283; G0481

== ENCOUNTER 2016-07-24 16:35 | Emergency (ER) | payer OTHER ==
[2016-07-24 17:12] LABS: Urine Bilirubin Negative (NEGATIVE); Urine Blood Negative /ul (NEGATIVE); Urine Ketone Negative (NEGATIVE); Urine Nitrite Negative (NEGATIVE); Urine Protein Negative (NEGATIVE); Urine Urobilinogen Normal (NORMAL)
[2016-07-24 17:14] LABS: Urine Appearance Clear; Urine Bacteria None Seen; Urine Color Pale Yellow; Urine RBC None Seen /hpf (0-5); Urine WBC None Seen /hpf (0-5)
[2016-07-24 18:46] LABS: Hematocrit 38.9 % (37.0-47.0); Hemoglobin 13.1 gm/dL (12.5-16.0); Mean Cell Volume 84.4 fl (78-100); Mean Corpuscular Hemoglobin 28.4 pg (27-31); Mean Corpuscular Hgb Conc 33.7 g/dl (32-36); Mean Platelet Volume 9.4 fl (6.0-9.5); Neutrophil # 8.4 K/mm3 (1.3-6.0); Neutrophil % 59.9 % (42-75.0); Platelet Count 328 K/mm3 (150-450); Red Blood Count 4.61 M/mm3 (4.2-5.4); Red Cell Distribution Width 13.1 % (11.5-14.0)
[2016-07-24 18:59] LABS: Albumin * 3.5 gm/dl (3.4-5.0); Anion Gap 13.6 mmol/L (6.8-13.8); BUN/Creatinine Ratio 15.8 (9.0-21.6); Bilirubin, Total 0.2 mg/dL (0.0-1.1); Ca. Corrected For Albumin 9.1 mg/dL (8.4-10.2); Carbon Dioxide 26.3 mmol/L (24-32.6); Potassium 2.9 mmol/L (3.4-4.6); Total Protein 8.5 gm/dL (6.2-8.2)
[2016-07-24] MEDS ORDERED: KETOROLAC TROMETHAMINE 60 MG/2 ML VIAL IM ONE ×2 (19:21→19:26)
[2016-07-24] MEDS ORDERED: metroNIDAZOLE 250 MG TABLET PO ONE (19:21)
[2016-07-24] MEDS ORDERED: DICYCLOMINE HCL 10 MG/ML AMPUL IM ONE ×2 (19:21→19:26)
[2016-07-24] MEDS ORDERED: metroNIDAZOLE 250 MG TABLET ONE (19:26)
--- NOTE | 2016-07-24 19:42 | ERNOTE ---
Abdominal HPI - Narrative Date of Service: 07/24/16 - General Chief Complaint: General Assessment Time Seen by Provider: 07/24/16 18:30 Source: patient Exam Limitations: no limitations - Immun/Allergies/Home Medications Immunizatons: IMMUNIZATION HX Immunizations Up to Date Yes History of Influenza Vaccine No Hx Pneumococcal Vaccination No Allergies/Adverse Reactions: Allergies Influenza Virus Vaccines Allergy (Intermediate, Verified 07/24/16 16:43) Hives ciprofloxacin [From Cipro] Allergy (Verified 07/24/16 16:43) ciprofloxacin HCl [From Cipro] Allergy (Verified 07/24/16 16:43) ibuprofen Allergy (Verified 07/24/16 16:43) latex Allergy (Verified 07/24/16 16:43) metformin Allergy (Verified 07/24/16 16:43) pantoprazole sodium [From Protonix] Allergy (Verified 07/24/16 16:43) Penicillins Allergy (Verified 07/24/16 16:43) Sulfa (Sulfonamide Antibiotics) Allergy (Verified 07/24/16 16:43) Home Medications: HOME MEDICATIONS Albuterol Sulfate [Albuterol Sulfate 0.63 MG/3ML] 0.63 mg IH Q4H 04/09/16 [Last Taken Unknown] Amitriptyline HCl [Elavil] 25 mg PO HS 04/09/16 [Last Taken Unknown] Budesonide/Formoterol Fumarate [Symbicort 80-4.5 Mcg Inhaler] 1 puff IH BID [Last Taken Unknown] Gabapentin [Gralise] 600 mg PO TID 04/09/16 [Last Taken Unknown] Hydrochlorothiazide [Hydrodiuril] 25 mg PO DAILY 04/09/16 [Last Taken Unknown] Insulin Glargine,Hum.rec.anlog [Lantus] 10 units SC ACHS 04/09/16 [Last Taken Unknown] Venlafaxine HCl [Effexor Xr] 75 mg PO DAILY 04/09/16 [Last Taken Unknown] Dabigatran Etexilate Mesylate [Pradaxa] 150 mg PO BID 06/27/16 [Last Taken Unknown] Losartan Potassium [Cozaar] 50 mg PO DAILY 06/27/16 [Last Taken Unknown] Ranitidine HCl [Heartburn Relief] 150 mg PO BID 06/27/16 [Last Taken Unknown] Topiramate [Topamax] 50 mg PO DAILY 06/27/16 [Last Taken Unknown] Clonazepam 2 mg PO BID 07/20/16 [Last Taken Unknown] QUEtiapine FUMARATE [Seroquel] 100 mg PO HS 07/20/16 [Last Taken Unknown] Dicyclomine HCl [Bentyl] 10 - 20 mg PO TID #30 tab 07/21/16 [Last Taken Unknown] metroNIDAZOLE [Flagyl] 500 mg PO QID #40 tab 07/21/16 [Last Taken Unknown] Prochlorperazine [Compazine] 25 mg RC Q12H PRN #4 supp.rect 07/22/16 [Last Taken Unknown] - History of Present Illness Narrative: Pt. comes in with c/o RUQ, RLQ, abd pain with vomiting and diarrhea. Pt. states that she has not been able to eat or drink anything since the onset of symptoms a week ago. Pt. denies any increase in intensity and states that she is not having difficulty urinating at this time. Pt. denies any SOB, CP, fever, or alleviaiating factors but states taht she has been unable to cotton picker her prescriptions that this provider prescribed three days ago. Review of Systems - Review of Systems Constitutional: Present: malaise. Absent: fever, chills EYE: Present: no symptoms reported ENT: Present: no symptoms reported Respiratory: Present: no symptoms reported. Absent: shortness of breath, cough , wheezing Cardiology: Present: no symptoms reported. Absent: chest pain, palpitations, edema Gastrointestinal/Abdominal: Present: nausea, vomiting, diarrhea, abdominal pain Genitourinary: Present: no symptoms reported Musculoskeletal: Present: back pain - R post. Absent: joint pain Skin: Present: no symptoms reported Neurological: Present: no symptoms reported. Absent: headache, dizziness/light- headedness, numbness, tingling All Other Systems: All systems neg except as marked - Patient's Past Medical History Patient History - Medical: Anxiety, Bipolar, Diabetes Type 2, Seizures Patient History - Cardiac/Respiratory: Hypertension, Hyperlipidemia, Pulmonary Embolism, Peripheral Vascular Disease Patient History - Cancer: Cervical, Other Patient History - Surgical Procedures: Appendectomy, Hysterectomy, Tubal Ligation, Other Patient History - Other: None - Family History Mother Family History - Medical: Diabetes Type 2, Seizures Family History - Cardiac/Respiratory: Deep Vein Thrombosis, Hyperlipidemia, Myocardial Infarction Family History - Cancer: Cervical Grandmother-Maternal Family History - Cardiac/Respiratory: Deep Vein Thrombosis - Social History Living Situations: home Abuse History: No History of abuse Psych History: Hx of Anxiety, Hx of Depression, Hx of Bipolar Disorder, Current tx/ever been on anti-depressants or anti-anxiety meds Alcohol Use: none Drug Use: none - Immunizations Immunizations Up to Date: Yes Hx Pneumococcal Vaccination: No History of Influenza Vaccine: No Physical Exam - Physical Exam General Appearance: Present: wd/wn, alert, no apparent distress Eye Exam: Normal inspection: bilateral, PERRL: bilateral, EOMI: bilateral Ears, Nose, Throat: Present: normal ENT inspection, normal pharynx Neck: Present: normal inspection, nontender. Absent: lymphadenopathy (R), lymphadenopathy (L) Respiratory: Present: no respiratory distress, normal breath sounds, no accessory muscle use, chest nontender, lungs clear Cardiovascular/Chest: Present: regular rate, rhythm, no murmur, normal peripheral pulses Gastrointestinal/Abdominal: Present: normal bowel sounds, nondistended, soft, no organomegaly, tenderness - diffuse Back Exam: Present: normal inspection, normal range of motion, no CVA tenderness , no vertebral tenderness Extremity Exam: Present: normal inspection Neurological Exam: Present: alert, oriented, no motor/sensory deficits, other - anxious mood Skin Exam: Present: normal color, warm/dry. Absent: pallor, skin rash ED Progress - Date and Time Seen: Date and Time: 07/24/16 19:37 Discussed prescriptions with pharmacist and contrary to what pt. stated her prescriptions are ready for no charge at the pharmacy. 07/24/16 2100 As pt. is having writhing pain and is worsening with elevated WBC and I have no radiological finding feel that pt. needs repeat CT scan [address] scan negative feel that pt. needs outpatient referral to GI specialist will have pt. follow up with PCP and discuss following up with GI doctor - Results and Orders Patient's Lab Results:: I have reviewed the patient's lab results. - Vital Signs Patient's Vital Signs:: I have reviewed the patient's vital signs. Vital Signs: Vital Signs 07/24/16 07/24/16 07/24/16 13:26 16:40 18:53 Temperature 36.6 C 36.2 C L 36 C L Pulse Rate 119 H 99 Respiratory 12 20 Rate Blood Pressure 118/80 126/75 109/64 O2 Sat by Pulse 97 98 Oximetry - EKG EKG: NSR EKG read: Reviewed by me EKG Comments: interpretted by Dr Uribe - X-Ray X-Ray #1 X-Ray: abdomen Interpretation: Reviewed by me X-ray Comments: no acute - Progress/Reassessment Chief Complaint: General Assessment Departure - Departure Clinical Impression: Gastroenteritis and colitis, toxic Disposition: Home self-care Condition: Good Instructions: Colitis Additional Instructions: Please cotton picker medications that are ordered for you at pharmacy. Please follow up with your primary provider in 2-3 days to discuss referral to GI doctor and to recheck your potassium. Referrals: Daisy Coles DO [Primary Care Provider] -
[2016-07-24] MEDS ORDERED: DIATRIZOATE MEGLUMINE, SODIUM 30 ML BTL ONE (20:06)
[2016-07-24] MEDS ORDERED: DIATRIZOATE MEGLUMINE, SODIUM 30 ML BTL PO ONE (20:08)
[2016-07-24] MEDS: POTASSIUM CHLORIDE 100 ML IV SCH (22:48)
[2016-07-24] MEDS ORDERED: NORMAL SALINE 1,000 ML IV ONE (23:04)
[2016-07-25] MEDS: POTASSIUM CHLORIDE 100 ML IV SCH (00:23)
[2016-07-25 01:45] VITALS: BP 107/68
== END 2016-07-25 01:37 | disposition home or self-care (01) ==
LOC: ER 16:35
DX: K52.1 Toxic gastroenteritis and colitis (principal); F41.9 Anxiety disorder, unspecified; F31.70 Bipolar disorder, currently in remission, most recent episode unspecified; E11.9 Type 2 diabetes mellitus without complications; G40.409 Other generalized epilepsy and epileptic syndromes, not intractable, without status epilepticus; I10 Essential (primary) hypertension; E78.5 Hyperlipidemia, unspecified; I73.9 Peripheral vascular disease, unspecified

== ENCOUNTER 2016-07-29 13:47 | Emergency (ER) | payer OTHER ==
[2016-07-29] MEDS ORDERED: ONDANSETRON HCL/PF 2 MG/ML VIAL IM ONE (14:16)
[2016-07-29] MEDS ORDERED: ONDANSETRON HCL/PF 2 MG/ML VIAL ONE (14:19)
[2016-07-29 15:08] LABS: Hemoglobin 12.2 gm/dL (12.5-16.0); Mean Cell Volume 86.7 fl (78-100); Mean Corpuscular Hemoglobin 28.6 pg (27-31); Mean Platelet Volume 9.4 fl (6.0-9.5); Neutrophil % 66.7 % (42-75.0); Platelet Count 308 K/mm3 (150-450); Red Blood Count 4.27 M/mm3 (4.2-5.4); Red Cell Distribution Width 13.2 % (11.5-14.0)
[2016-07-29 15:16] LABS: Anion Gap 8.8 mmol/L (6.8-13.8); BUN/Creatinine Ratio 17.6 (9.0-21.6); Calcium * 9.1 mg/dL (7.9-10.9); Carbon Dioxide 30.6 mmol/L (24-32.6); Estimated Creat Clear 86.4; Potassium 3.4 mmol/L (3.4-4.6)
--- NOTE | 2016-07-29 16:04 | ERNOTE ---
Medical Problem HPI - Narrative Date of Service: 07/29/16 - General Chief Complaint: Diabetes Related Problem Time Seen by Provider: 07/29/16 14:16 Source: patient, family Exam Limitations: no limitations - Immun/Allergies/Home Medications Immunizations: IMMUNIZATION HX Immunizations Up to Date Yes History of Influenza Vaccine No Hx Pneumococcal Vaccination No Allergies/Adverse Reactions: Allergies Influenza Virus Vaccines Allergy (Intermediate, Verified 07/29/16 14:06) Hives ciprofloxacin [From Cipro] Allergy (Verified 07/29/16 14:06) ciprofloxacin HCl [From Cipro] Allergy (Verified 07/29/16 14:06) ibuprofen Allergy (Verified 07/29/16 14:06) latex Allergy (Verified 07/29/16 14:06) metformin Allergy (Verified 07/29/16 14:06) pantoprazole sodium [From Protonix] Allergy (Verified 07/29/16 14:06) Penicillins Allergy (Verified 07/29/16 14:06) Sulfa (Sulfonamide Antibiotics) Allergy (Verified 07/29/16 14:06) Home Medications: HOME MEDICATIONS Albuterol Sulfate [Albuterol Sulfate 0.63 MG/3ML] 0.63 mg IH Q4H 04/09/16 [Last Taken Unknown] Amitriptyline HCl [Elavil] 25 mg PO HS 04/09/16 [Last Taken Unknown] Budesonide/Formoterol Fumarate [Symbicort 80-4.5 Mcg Inhaler] 1 puff IH BID [Last Taken Unknown] Gabapentin [Gralise] 600 mg PO TID 04/09/16 [Last Taken Unknown] Hydrochlorothiazide [Hydrodiuril] 25 mg PO DAILY 04/09/16 [Last Taken Unknown] Insulin Glargine,Hum.rec.anlog [Lantus] 10 units SC ACHS 04/09/16 [Last Taken Unknown] Venlafaxine HCl [Effexor Xr] 75 mg PO DAILY 04/09/16 [Last Taken Unknown] Dabigatran Etexilate Mesylate [Pradaxa] 150 mg PO BID 06/27/16 [Last Taken Unknown] Losartan Potassium [Cozaar] 50 mg PO DAILY 06/27/16 [Last Taken Unknown] Ranitidine HCl [Heartburn Relief] 150 mg PO BID 06/27/16 [Last Taken Unknown] Topiramate [Topamax] 50 mg PO DAILY 06/27/16 [Last Taken Unknown] Clonazepam 2 mg PO BID 07/20/16 [Last Taken Unknown] QUEtiapine FUMARATE [Seroquel] 100 mg PO HS 07/20/16 [Last Taken Unknown] Ondansetron [Zofran Odt] 4 mg PO Q6H PRN #20 tab 07/29/16 [Last Taken Unknown] Zolpidem Tartrate 10 mg PO HS 07/29/16 [Last Taken Unknown] - Pain Score Pain Score #1 Pain Score: 3 - History of Present History Narrative: Patient is a 41 year old female who presents to the ED with complaints of nausea , history of vomiting and low blood sugar. Patient states she is a insulin dependant diabetic who takes Lantus 10 units nightly. Patient states she took her prescribed amount of insulin last night before bed and had bowl of ice cream and nutty bars yet when she checked her sugar this morning at 0900 it was reading 63. She ate four pieces of toast. At noon she had hot dogs for lunch yet felt cold, clammy, dizzy and nauseated and checked her sugar noticing it was 56. Rechecked it multiple times in one hour and lowest reading 49. Patient states her family called Dr Coles and was told by examination supervisor provider to "call EMS immediately and come to ER". Date (Duration): 07/29/16 Timing: constant Severity: mild Modifying Factors - (Improves): Present: eating Review of Systems - Review of Systems Constitutional: Present: no symptoms reported. Absent: recent illness, fever, chills EYE: Present: no symptoms reported ENT: Present: no symptoms reported Respiratory: Present: no symptoms reported. Absent: shortness of breath, cough , wheezing Cardiology: Present: no symptoms reported. Absent: chest pain, palpitations Gastrointestinal/Abdominal: Present: nausea, vomiting Genitourinary: Present: frequency Musculoskeletal: Present: no symptoms reported Skin: Present: no symptoms reported Neurological: Present: dizziness/light-headedness Endocrine: Present: no symptoms reported Hematologic/Lymphatic: Present: no symptoms reported Psych: Present: no symptoms reported - Patient's Past Medical History Patient History - Medical: Anxiety, Bipolar, Diabetes Type 2, Seizures Patient History - Cardiac/Respiratory: Hypertension, Hyperlipidemia, Pulmonary Embolism, Peripheral Vascular Disease Patient History - Cancer: Cervical, Other Patient History - Surgical Procedures: Appendectomy, Hysterectomy, Tubal Ligation, Other Patient History - Other: None - Family History Mother Family History - Medical: Diabetes Type 2, Seizures Family History - Cardiac/Respiratory: Deep Vein Thrombosis, Hyperlipidemia, Myocardial Infarction Family History - Cancer: Cervical Grandmother-Maternal Family History - Cardiac/Respiratory: Deep Vein Thrombosis - Social History Living Situations: home Abuse History: No History of abuse Psych History: Hx of Anxiety, Hx of Depression, Hx of Bipolar Disorder, Current tx/ever been on anti-depressants or anti-anxiety meds Alcohol Use: none Drug Use: none - Immunizations Immunizations Up to Date: Yes Hx Pneumococcal Vaccination: No History of Influenza Vaccine: No Physical Exam - Physical Exam General Appearance: Present: wd/wn, alert, no apparent distress Eye Exam: Normal inspection: bilateral, PERRL: bilateral Ears, Nose, Throat: Present: normal ENT inspection, normal pharynx. Absent: nasal congestion, sinus pain/drainage, pharyngeal erythema, pharyngeal swelling , tonsillar exudate, dry mucous membranes Neck: Present: normal inspection, nontender, supple, full range of motion. Absent: lymphadenopathy (R), lymphadenopathy (L) Respiratory: Present: no respiratory distress, normal breath sounds, no accessory muscle use, chest nontender, lungs clear Cardiovascular/Chest: Present: regular rate, rhythm, no murmur, normal peripheral pulses. Absent: gallop/S3, gallop/S4 Peripheral Pulses: N=norm/S=strong/W=weak/B=bound/A=absent: Carotid (R): Normal , Carotid (L): Normal, Radial (R): Normal, Radial (L): Normal Gastrointestinal/Abdominal: Present: normal bowel sounds, nontender, nondistended, soft, no organomegaly Rectal Exam: Present: deferred Back Exam: Present: normal inspection, normal range of motion, no CVA tenderness , no vertebral tenderness Extremity Exam: Present: normal inspection, non-tender, normal range of motion, no edema Neurological Exam: Present: alert, oriented, normal mood/affect, no motor/ sensory deficits Skin Exam: Present: normal color, warm/dry ED Progress - Results and Orders Patient's Lab Results:: I have reviewed the patient's lab results. - Vital Signs Patient's Vital Signs:: I have reviewed the patient's vital signs. Vital Signs: Vital Signs 07/29/16 07/29/16 14:04 15:05 Temperature 36.7 C 36.3 C L Pulse Rate 80 89 Respiratory 16 14 Rate Blood Pressure 149/94 138/90 O2 Sat by Pulse 100 100 Oximetry - Progress/Reassessment Chief Complaint: Diabetes Related Problem Progress:: Improved Progress Note-Subjective: 07/29/16 16:03 blood sugar prior to dismissal >100. Patient in room playing games on phone. Alert and oriented, does not appear to be in any acute distress. Consumed entire food tray Departure - Departure Clinical Impression: Low blood sugar in diabetes Vomiting Qualifiers: Vomiting type: unspecified Vomiting Intractability: unspecified Nausea presence : with nausea Qualified Code(s): R11.2 - Nausea with vomiting, unspecified Disposition: Home Follow Up Needed Condition: Good Instructions: Hypoglycemia, [id number], Blood Glucose Monitoring, Adult, Nausea, Adult Additional Instructions: Continue to monitor blood sugars. Continue to push fluids. [place] diet while nauseated. Continue to keep all previously scheduled appointments. Referrals: Daisy Coles DO [Primary Care Provider] - Prescriptions: Ondansetron [Zofran Odt] 4 mg PO Q6H PRN #20 tab PRN Reason: Nausea
[2016-07-29 16:08] VITALS: BP 145/84
== END 2016-07-29 16:00 | disposition home or self-care (01) ==
LOC: ER 13:47
DX: E11.65 Type 2 diabetes mellitus with hyperglycemia (principal); R11.2 Nausea with vomiting, unspecified; Z85.41 Personal history of malignant neoplasm of cervix uteri; Z86.711 Personal history of pulmonary embolism; Z79.01 Long term (current) use of anticoagulants; F31.9 Bipolar disorder, unspecified; F41.9 Anxiety disorder, unspecified; E78.5 Hyperlipidemia, unspecified; I10 Essential (primary) hypertension; I73.9 Peripheral vascular disease, unspecified

== ENCOUNTER 2016-08-02 13:40 | Emergency (ER) | payer OTHER ==
[2016-08-02 13:48] VITALS: BP 127/89
[2016-08-02] MEDS ORDERED: ACETAMINOPHEN 500 MG TABLET PO ONE (15:00)
--- NOTE | 2016-08-02 15:04 | ERNOTE ---
Lower Extremity HPI - Narrative Date of Service: 08/02/16 - General Lower Extremities Pain: hip: right Time Seen by Provider: 08/02/16 14:11 Source: patient, RN notes reviewed, old records Exam Limitations: no limitations - Immun/Allergies/Home Medications Immunizations: IMMUNIZATION HX Immunizations Up to Date Yes History of Influenza Vaccine No Hx Pneumococcal Vaccination No Allergies/Adverse Reactions: Allergies Allergy/AdvReac Type Severity Reaction Status Date / Time Influenza Virus Vaccines Allergy Intermediate Hives Verified 08/02/16 13:48 ciprofloxacin [From Cipro] Allergy Verified 08/02/16 13:48 ciprofloxacin HCl Allergy Verified 08/02/16 13:48 [From Cipro] ibuprofen Allergy Verified 08/02/16 13:48 latex Allergy Verified 08/02/16 13:48 metformin Allergy Verified 08/02/16 13:48 pantoprazole sodium Allergy Verified 08/02/16 13:48 [From Protonix] Penicillins Allergy Verified 08/02/16 13:48 Sulfa (Sulfonamide Allergy Verified 08/02/16 13:48 Antibiotics) Home Medications: HOME MEDICATIONS Albuterol Sulfate [Albuterol Sulfate 0.63 MG/3ML] 0.63 mg IH Q4H 04/09/16 [Last Taken Unknown] Amitriptyline HCl [Elavil] 25 mg PO HS 04/09/16 [Last Taken Unknown] Budesonide/Formoterol Fumarate [Symbicort 80-4.5 Mcg Inhaler] 1 puff IH BID [Last Taken Unknown] Gabapentin [Gralise] 600 mg PO TID 04/09/16 [Last Taken Unknown] Hydrochlorothiazide [Hydrodiuril] 25 mg PO DAILY 04/09/16 [Last Taken Unknown] Insulin Glargine,Hum.rec.anlog [Lantus] 10 units SC ACHS 04/09/16 [Last Taken Unknown] Venlafaxine HCl [Effexor Xr] 75 mg PO DAILY 04/09/16 [Last Taken Unknown] Dabigatran Etexilate Mesylate [Pradaxa] 150 mg PO BID 06/27/16 [Last Taken Unknown] Losartan Potassium [Cozaar] 50 mg PO DAILY 06/27/16 [Last Taken Unknown] Ranitidine HCl [Heartburn Relief] 150 mg PO BID 06/27/16 [Last Taken Unknown] Topiramate [Topamax] 50 mg PO DAILY 06/27/16 [Last Taken Unknown] Clonazepam 2 mg PO BID 07/20/16 [Last Taken Unknown] QUEtiapine FUMARATE [Seroquel] 100 mg PO HS 07/20/16 [Last Taken Unknown] Ondansetron [Zofran Odt] 4 mg PO Q6H PRN #20 tab 07/29/16 [Last Taken Unknown] Zolpidem Tartrate 10 mg PO HS 07/29/16 [Last Taken Unknown] - History of Present Illness Narrative: 41 y/o female ambulatory to the ED for right hip pain. She reports having a seizure during the night and falling out of bed. She is epileptic and takes Topamax. Her told her that the episdode lasted 15 to 20 minutes. She contacted her neurologist and was directed to come here for evaluation. On review of her clinic record, she also contacted her PCP about the problem today. She reported to them that she passed out due to having a low blood sugar of 76. She was also concerned about a lump on her hip that she believes is a blood clot from the fall. She is anticoagulated on Pradaxa for a PE. Dr. Coles has been decreasing her insulin dose, as it is uncertain if the patient is actually diabetic. She was told today to stop her insulin completely, but she hung up on the nurse. She has not taken anything for pain. Occurred: this morning Location of Incident: home Method of Injury: Reports: fell Associated Symptoms: Denies: unable to bear weight, snapping, popping sensation , weakness, sensory loss, bowel/bladder problems Other Injuries: Reports: none Prior Treament: Reports: recently seen Review of Systems - Review of Systems Constitutional: Present: recent illness. Absent: fever, chills EYE: Present: no symptoms reported ENT: Present: no symptoms reported Respiratory: Present: no symptoms reported Cardiology: Absent: chest pain, edema Gastrointestinal/Abdominal: Absent: nausea, vomiting, abdominal pain Genitourinary: Present: no symptoms reported Musculoskeletal: Present: joint pain. Absent: joint swelling Skin: Present: lumps. Absent: lesions, change in color Neurological: Absent: weakness, numbness, tingling Endocrine: Present: no symptoms reported Hematologic/Lymphatic: Present: easy bruising, easy bleeding Psych: Present: anxiety - Patient's Past Medical History Patient History - Medical: Anxiety, Bipolar, Diabetes Type 2, Depression, GERD, Obesity, Seizures Patient History - Cardiac/Respiratory: Hypertension, Hyperlipidemia, Pulmonary Embolism, Peripheral Vascular Disease Patient History - Cancer: Cervical, Other Patient History - Surgical Procedures: Appendectomy, Hysterectomy, Tubal Ligation, Other Patient History - Other: None LMP (females 10-50): other - s/p hysterectomy - Family History Mother Family History - Medical: Diabetes Type 2, Seizures Family History - Cardiac/Respiratory: Deep Vein Thrombosis, Hyperlipidemia, Myocardial Infarction Family History - Cancer: Cervical Grandmother-Maternal Family History - Cardiac/Respiratory: Deep Vein Thrombosis - Social History Living Situations: home Abuse History: No History of abuse Psych History: Psychiatric Hx, Hx of Anxiety, Hx of Depression, Hx of Bipolar Disorder, Current tx/ever been on anti-depressants or anti-anxiety meds Smoking Status: Former smoker Alcohol Use: none Drug Use: none - Immunizations Immunizations Up to Date: Yes Hx Pneumococcal Vaccination: No History of Influenza Vaccine: No Physical Exam - Physical Exam General Appearance: Present: alert, obese, other - Ambulated into dept without difficulty, but laying half on/half off exam table crying when I entered room Respiratory: Present: no respiratory distress, no accessory muscle use Cardiovascular/Chest: Present: normal peripheral pulses Back Exam: Present: normal inspection, no vertebral tenderness Extremity Exam: Present: no edema, other - no deformity or ecchymosis to right hip, difficult d/t examine as patient is very dramatic, "lump" that patieint is concerned about appears to be cellulite. Absent: bony tenderness, joint swelling Neurological Exam: Present: alert, oriented, no motor/sensory deficits. Absent : normal mood/affect Skin Exam: Present: normal color, warm/dry ED Progress - Vital Signs Patient's Vital Signs:: I have reviewed the patient's vital signs. Vital Signs: Vital Signs 08/02/16 08/02/16 13:45 14:30 Temperature 36.9 C Pulse Rate 87 87 Respiratory 16 Rate Blood Pressure 127/89 O2 Sat by Pulse 97 Oximetry - X-Ray X-Ray #1 X-Ray: hip Interpretation: Reviewed by me X-ray Comments: TECHNIQUE: AP view of the pelvis, and AP and crosstable lateral views of the right hip. COMPARISONS: None available. Hip Pelvis 2-3 Views RT * The crosstable lateral view somewhat limited by patient's body habitus and underpenetration. No definable fracture lucency or cortical discontinuity. If there is a persistent clinical concern for occult fracture, consider follow-up by CT or MRI as clinically indicated. Joint spaces are in gross normal alignment without subluxation or dislocation. Mild degenerative changes of the right hip noted. Overlying bowel gas which obscures some of the bony details of the sacrum/coccyx. Sacroiliac joints are grossly symmetric without diastases. Soft tissues are grossly normal, other than patient's body habitus/ obesity. IMPRESSION: 1. No definable acute fracture. 2. Degenerative changes of the right hip. 3. Additional comments and details are as above. Electronically signed by Sangita Juan M.D.. - Progress/Reassessment Chief Complaint: Hip Pain/Injury Progress:: Unchanged Departure Clinical Impression: Hip pain, right Fall from bed Qualifiers: Encounter type: initial encounter Qualified Code(s): W06.XXXA - Fall from bed, initial encounter - Departure Disposition: Home Follow Up Needed Condition: Stable Instructions: Hip Pain Additional Instructions: Tylenol for pain Ice/heat to sore area Stop your insulin as directed by Dr. Coles, continue your other routine medications Referrals: Daisy Coles DO [Primary Care Provider] -
== END 2016-08-02 15:12 | disposition home or self-care (01) ==
LOC: ER 13:40
DX: M25.551 Pain in right hip (principal); W06.XXXA Fall from bed, initial encounter; Z91.81 History of falling; Y93.84 Activity, sleeping; Y92.003 Bedroom of unspecified non-institutional (private) residence as the place of occurrence of the external cause; Z85.41 Personal history of malignant neoplasm of cervix uteri; F41.8 Other specified anxiety disorders; F31.70 Bipolar disorder, currently in remission, most recent episode unspecified; E11.9 Type 2 diabetes mellitus without complications; K21.9 Gastro-esophageal reflux disease without esophagitis; G40.409 Other generalized epilepsy and epileptic syndromes, not intractable, without status epilepticus; I10 Essential (primary) hypertension; E78.5 Hyperlipidemia, unspecified

== ENCOUNTER 2016-08-04 11:12 | Emergency (ER) | payer OTHER ==
--- NOTE | 2016-08-04 12:01 | ERNOTE ---
Psychological HPI - Date Date of Service: 08/04/16 - General Chief Complaint: Anxiety Source: Reports: patient, RN notes reviewed, past records Exam Limitations: Reports: other - Very poor historian vs. manipulative behavior - Immun/Allergies/Home Medications Allergies/Adverse Reactions: Allergies Influenza Virus Vaccines Allergy (Intermediate, Verified 08/04/16 11:21) Hives ciprofloxacin [From Cipro] Allergy (Verified 08/04/16 11:21) ciprofloxacin HCl [From Cipro] Allergy (Verified 08/04/16 11:21) ibuprofen Allergy (Verified 08/04/16 11:21) latex Allergy (Verified 08/04/16 11:21) metformin Allergy (Verified 08/04/16 11:21) pantoprazole sodium [From Protonix] Allergy (Verified 08/04/16 11:21) Penicillins Allergy (Verified 08/04/16 11:21) Sulfa (Sulfonamide Antibiotics) Allergy (Verified 08/04/16 11:21) Home Medications: HOME MEDICATIONS Albuterol Sulfate [Albuterol Sulfate 0.63 MG/3ML] 0.63 mg IH Q4H 04/09/16 [Last Taken Unknown] Amitriptyline HCl [Elavil] 25 mg PO HS 04/09/16 [Last Taken Unknown] Gabapentin [Gralise] 600 mg PO TID 04/09/16 [Last Taken Unknown] Hydrochlorothiazide [Hydrodiuril] 25 mg PO DAILY 04/09/16 [Last Taken Unknown] Venlafaxine HCl [Effexor Xr] 75 mg PO DAILY 04/09/16 [Last Taken Unknown] Dabigatran Etexilate Mesylate [Pradaxa] 150 mg PO BID 06/27/16 [Last Taken Unknown] Losartan Potassium [Cozaar] 50 mg PO DAILY 06/27/16 [Last Taken Unknown] Ranitidine HCl [Heartburn Relief] 150 mg PO BID 06/27/16 [Last Taken Unknown] Topiramate [Topamax] 50 mg PO DAILY 06/27/16 [Last Taken Unknown] Clonazepam 2 mg PO BID 07/20/16 [Last Taken Unknown] QUEtiapine FUMARATE [Seroquel] 100 mg PO HS 07/20/16 [Last Taken Unknown] Zolpidem Tartrate 10 mg PO HS 07/29/16 [Last Taken Unknown] Budesonide/Formoterol Fumarate [Symbicort 80-4.5 Mcg Inhaler] 10.2 gm IH BID [Last Taken Unknown] Methylcellulose [Citrucel] 500 mg PO DAILY 08/04/16 [Last Taken Unknown] - History of Present Illness Narrative: Laquita is a 41-year-old female brought to the emergency department in a wheelchair from the walk-in clinic for feeling anxious and overwhelmed. She had an appointment in urology this morning. She was upset about how the appointment went and did not feel that her needs were addressed. She then contacted psychiatry and told them that she did not have any when necessary medications to take for her anxiety. She was directed by the nurse there to go to the walk-in clinic to obtain a short-term supply of medication. She does actually have clonazepam that is prescribed to take daily at 8 PM and also in the mornings before religion. She reports that she is unsure which medication she is supposed to take if she is feeling anxious and if she is anxious she just called her psychiatrist and asked him what to take. She had also presented to her primary care provider's office in internal medicine for these issues, but her doctor is out of the office today. She was brought here because the walk-in clinic could not address her anxiety or prescribed any medication for the problem. The patient reports that she doesn't even know why she is here for brought her here. I last saw the patient 2 days ago. At that time she had hip pain due to falling out of bed. She had contacted her primary care provider's office that day as well because she was concerned that she had a blood clot in the hip she had fallen on. She had told them that she thought she fell out of bed because her blood sugar was low. When she presented here, she reported that she fell out of bed due to having a seizure that lasted 15-20 minutes. Today, she initially reported suicidal ideation when she was checked in. She now states that this is not true. This is her 16th ER visit since she initially presented here 6 months ago. Time Seen by Provider: 08/04/16 11:38 Date (Duration): 08/04/16 Prior Treament: Reports: recently seen, treated by physician, similar symptoms before Review of Systems - Review of Systems Constitutional: Present: no symptoms reported EYE: Present: no symptoms reported ENT: Present: no symptoms reported Respiratory: Present: no symptoms reported Cardiology: Present: no symptoms reported Gastrointestinal/Abdominal: Present: no symptoms reported Genitourinary: Present: no symptoms reported Musculoskeletal: Present: no symptoms reported Skin: Present: no symptoms reported Neurological: Present: emotional problems Endocrine: Present: no symptoms reported Hematologic/Lymphatic: Present: no symptoms reported Psych: Present: anxiety, depressed. Absent: other - suicidal thoughts - Patient's Past Medical History Patient History - Medical: Anxiety, Bipolar, Diabetes Type 2, Depression, GERD, Obesity, Seizures Patient History - Cardiac/Respiratory: Hypertension, Hyperlipidemia, Pulmonary Embolism, Peripheral Vascular Disease Patient History - Cancer: Cervical, Other Patient History - Surgical Procedures: Appendectomy, Hysterectomy, Tubal Ligation, Other Patient History - Other: None LMP (females 10-50): other - Family History Mother Family History - Medical: Diabetes Type 2, Seizures Family History - Cardiac/Respiratory: Deep Vein Thrombosis, Hyperlipidemia, Myocardial Infarction Family History - Cancer: Cervical Grandmother-Maternal Family History - Cardiac/Respiratory: Deep Vein Thrombosis - Social History Living Situations: home Abuse History: No History of abuse Psych History: Psychiatric Hx, Hx of Anxiety, Hx of Depression, Hx of Bipolar Disorder, Current tx/ever been on anti-depressants or anti-anxiety meds Smoking Status: Current every day smoker Alcohol Use: none Drug Use: none - Immunizations Immunizations Up to Date: Yes Hx Pneumococcal Vaccination: No History of Influenza Vaccine: No Physical Exam - Physical Exam General Appearance: Present: wd/wn, alert, no apparent distress, obese Respiratory: Present: no respiratory distress, no accessory muscle use Extremity Exam: Present: normal inspection, normal range of motion Neurological Exam: Present: alert, normal mood/affect, no motor/sensory deficits , other - unable to provide an accurate history, reports that she is confused ED Progress - Vital Signs Patient's Vital Signs:: I have reviewed the patient's vital signs. Vital Signs: Vital Signs 08/04/16 11:16 Temperature 36.7 C Pulse Rate 91 Respiratory 16 Rate Blood Pressure 151/108 O2 Sat by Pulse 98 Oximetry - Progress/Reassessment Chief Complaint: Anxiety Progress:: Unchanged Plan - Plan Plan: Instructions of clonazepam dosing clarified for the patient. It is unclear to me at this point if she is actually confused about her medications and managing her care in general, or if this is some type of manipulative behavior as this is the second time this week that she has presented here for a nonemergent problem after giving differing accounts of the situation to multiple providers and offices. She continues to deny any suicidal thoughts and seems satisfied with the instructions on how to take her anxiety medications correctly. I informed her that I could not address her concerns about her urology visit here, and that this is not something that can be handled in the emergency department anyway. I also contacted psychiatry and internal medicine regarding the patient's inconsistent accounts of her problems when she has presented to their offices and then presented here. Departure Clinical Impression: Anxiety about health - Departure Disposition: Home Follow Up Needed Condition: Stable Instructions: Panic Attacks, [id number] Additional Instructions: Take your clonazepam for anxiety - bottle says take one at 8 PM and one before going to religion - if you are not attending religion you can take the clonazepam at the time you usually would if you were going to religion Referrals: Daisy Coles DO [Staff Physician] -
[2016-08-04 12:10] VITALS: BP 122/76
== END 2016-08-04 12:12 | disposition home or self-care (01) ==
LOC: ER 11:12
DX: F41.1 Generalized anxiety disorder (principal); F43.0 Acute stress reaction; Z85.41 Personal history of malignant neoplasm of cervix uteri; F31.70 Bipolar disorder, currently in remission, most recent episode unspecified; E11.9 Type 2 diabetes mellitus without complications; K21.9 Gastro-esophageal reflux disease without esophagitis; I10 Essential (primary) hypertension; E78.5 Hyperlipidemia, unspecified; Z72.0 Tobacco use

== ENCOUNTER 2016-08-07 15:34 | Emergency (ER) | payer OTHER ==
--- NOTE | 2016-08-07 16:45 | ERNOTE ---
Medical Problem HPI - Narrative Date of Service: 08/07/16 - General Chief Complaint: Diabetes Related Problem Time Seen by Provider: 08/07/16 16:44 Source: patient Exam Limitations: other - psychiatric issues cloud ALL of her history report. PLUS her psychiatrist is ill at the present time. - Immun/Allergies/Home Medications Immunizations: IMMUNIZATION HX Immunizations Up to Date Yes History of Influenza Vaccine No Hx Pneumococcal Vaccination No Allergies/Adverse Reactions: Allergies Influenza Virus Vaccines Allergy (Intermediate, Verified 08/04/16 11:21) Hives ciprofloxacin [From Cipro] Allergy (Verified 08/04/16 11:21) ciprofloxacin HCl [From Cipro] Allergy (Verified 08/04/16 11:21) ibuprofen Allergy (Verified 08/04/16 11:21) latex Allergy (Verified 08/04/16 11:21) metformin Allergy (Verified 08/04/16 11:21) pantoprazole sodium [From Protonix] Allergy (Verified 08/04/16 11:21) Penicillins Allergy (Verified 08/04/16 11:21) Sulfa (Sulfonamide Antibiotics) Allergy (Verified 08/04/16 11:21) Home Medications: HOME MEDICATIONS Albuterol Sulfate [Albuterol Sulfate 0.63 MG/3ML] 0.63 mg IH Q4H 04/09/16 [Last Taken Unknown] Amitriptyline HCl [Elavil] 25 mg PO HS 04/09/16 [Last Taken Unknown] Gabapentin [Gralise] 600 mg PO TID 04/09/16 [Last Taken Unknown] Hydrochlorothiazide [Hydrodiuril] 25 mg PO DAILY 04/09/16 [Last Taken Unknown] Venlafaxine HCl [Effexor Xr] 75 mg PO DAILY 04/09/16 [Last Taken Unknown] Dabigatran Etexilate Mesylate [Pradaxa] 150 mg PO BID 06/27/16 [Last Taken Unknown] Losartan Potassium [Cozaar] 50 mg PO DAILY 06/27/16 [Last Taken Unknown] Ranitidine HCl [Heartburn Relief] 150 mg PO BID 06/27/16 [Last Taken Unknown] Topiramate [Topamax] 50 mg PO DAILY 06/27/16 [Last Taken Unknown] QUEtiapine FUMARATE [Seroquel] 100 mg PO HS 07/20/16 [Last Taken Unknown] Zolpidem Tartrate 10 mg PO HS 07/29/16 [Last Taken Unknown] Budesonide/Formoterol Fumarate [Symbicort 80-4.5 Mcg Inhaler] 10.2 gm IH BID [Last Taken Unknown] Methylcellulose [Citrucel] 500 mg PO DAILY 08/04/16 [Last Taken Unknown] Clonazepam 2 tab PO BID #120 tablet 08/07/16 [Last Taken Unknown] levETIRAcetam [Keppra] 500 mg PO BID #60 tablet 08/07/16 [Last Taken Unknown] - History of Present History Narrative: Worried about her blood sugars. We did her Hgb A1C in the ER, it is 5.7. We sent the report home with her tonight. Then the issue became her chronic almost daily headaches. These are associated with double vision and vertigo. Also, her psychiatrist is off ill at the present time. She has a history of Bipolar disorder and PTSD. Timing: unsure Severity: moderate Modifying Factors - (Improves): Present: other - nothing Modifying Factors - (Worsens): Present: other - nothing Review of Systems - Review of Systems Constitutional: Present: malaise EYE: Present: double vision ENT: Present: no symptoms reported Respiratory: Present: no symptoms reported Cardiology: Present: chest pain Gastrointestinal/Abdominal: Present: nausea Genitourinary: Present: no symptoms reported Musculoskeletal: Present: no symptoms reported Skin: Present: no symptoms reported Neurological: Present: anxiety, emotional problems, headache, dizziness/light- headedness, seizure, weakness, numbness, tingling Endocrine: Present: excessive sweating Hematologic/Lymphatic: Present: no symptoms reported Psych: Present: no symptoms reported, anxiety, depressed All Other Systems: All systems neg except as marked - Patient's Past Medical History Patient History - Medical: Anxiety, Bipolar, Diabetes Type 2, Depression, GERD, Obesity, Seizures Patient History - Cardiac/Respiratory: Hypertension, Hyperlipidemia, Pulmonary Embolism, Peripheral Vascular Disease Patient History - Cancer: Cervical, Other Patient History - Surgical Procedures: Appendectomy, Hysterectomy, Tubal Ligation, Other Patient History - Other: None - Family History Mother Family History - Medical: Diabetes Type 2, Seizures Family History - Cardiac/Respiratory: Deep Vein Thrombosis, Hyperlipidemia, Myocardial Infarction Family History - Cancer: Cervical Grandmother-Maternal Family History - Cardiac/Respiratory: Deep Vein Thrombosis - Social History Living Situations: home Abuse History: No History of abuse Psych History: Psychiatric Hx, Hx of Anxiety, Hx of Depression, Hx of Bipolar Disorder, Current tx/ever been on anti-depressants or anti-anxiety meds Smoking Status: Current every day smoker Have you smoked in the past 12 months: Yes Do you dip or chew tobacco: No Patient requests Smoking Cessation Consult: No Initiate information on Smoking Cessation: No Alcohol Use: none Drug Use: none - Immunizations Immunizations Up to Date: Yes Hx Pneumococcal Vaccination: No History of Influenza Vaccine: No Physical Exam - Physical Exam General Appearance: Present: wd/wn, alert, anxious Eye Exam: Normal inspection: bilateral, PERRL: bilateral, EOMI: bilateral Ears, Nose, Throat: Present: normal ENT inspection Neck: Present: normal inspection, full range of motion Respiratory: Present: no respiratory distress, normal breath sounds Cardiovascular/Chest: Present: regular rate, rhythm, no murmur Gastrointestinal/Abdominal: Present: normal bowel sounds, nontender, nondistended, soft, no organomegaly Back Exam: Present: normal inspection, no CVA tenderness, no vertebral tenderness Extremity Exam: Present: normal inspection, no edema Neurological Exam: Present: alert, oriented, second floor operator II-XII nml as tested Skin Exam: Present: normal color, warm/dry ED Progress - Results and Orders Patient's Lab Results:: I have reviewed the patient's lab results. - Vital Signs Patient's Vital Signs:: I have reviewed the patient's vital signs. Vital Signs: Vital Signs 08/07/16 15:41 Temperature 36.9 C Pulse Rate 89 Respiratory 16 Rate Blood Pressure 129/82 O2 Sat by Pulse 98 Oximetry - Progress/Reassessment Chief Complaint: Diabetes Related Problem Progress:: Pain free at discharge Departure - Departure Clinical Impression: Anxiety about health Migraine Qualifiers: Migraine type: unspecified Status migrainosus presence: with status migrainosus Intractability: intractable Qualified Code(s): G43.911 - Migraine, unspecified, intractable, with status migrainosus Disposition: Home self-care Condition: Fair Instructions: Migraine Headache, [id number], Bipolar Disorder Additional Instructions: follow up with Dr. Coles next week and with your psychiatrist as soon as possible. Referrals: Daisy Coles DO [Primary Care Provider] - Prescriptions: Clonazepam 2 tab PO BID #120 tablet levETIRAcetam [Keppra] 500 mg PO BID #60 tablet
[2016-08-07] MEDS ORDERED: MAGNESIUM SULFATE IN WATER 50 ML IV ONE (17:14)
[2016-08-07] MEDS ORDERED: NORMAL SALINE 1,000 ML IV ONE (17:28)
[2016-08-07] MEDS ORDERED: METOCLOPRAMIDE HCL 5 MG/ML VIAL IV ONE ×2 (17:30→18:42)
[2016-08-07] MEDS ORDERED: KETOROLAC TROMETHAMINE 30 MG/ML VIAL IV ONE (17:30)
[2016-08-07] MEDS ORDERED: diphenhydrAMINE HCL 50 MG/ML VIAL IV ONE ×3 (17:30→19:23)
[2016-08-07 17:56] LABS: Hemoglobin A1C 5.2 % (4.00-6.0)
[2016-08-07] MEDS ORDERED: METOCLOPRAMIDE HCL 5 MG/ML VIAL ONE ×2 (17:58→18:49)
[2016-08-07] MEDS ORDERED: KETOROLAC TROMETHAMINE 30 MG/ML VIAL ONE (17:58)
[2016-08-07] MEDS ORDERED: diphenhydrAMINE HCL 50 MG/ML VIAL ONE ×2 (17:58→18:48)
[2016-08-07] MEDS ORDERED: LORazepam 2 MG/ML DISP.SYRIN IV ONE ×2 (18:42→19:23)
[2016-08-07] MEDS ORDERED: LORazepam 2 MG/ML DISP.SYRIN ONE (18:49)
[2016-08-07 20:36] VITALS: BP 104/65
== END 2016-08-07 20:34 | disposition home or self-care (01) ==
LOC: ER 15:34
DX: G43.911 Migraine, unspecified, intractable, with status migrainosus (principal); E11.8 Type 2 diabetes mellitus with unspecified complications; F06.4 Anxiety disorder due to known physiological condition; Z85.41 Personal history of malignant neoplasm of cervix uteri; Z72.0 Tobacco use

== ENCOUNTER 2016-08-09 12:11 | Emergency (ER) | payer OTHER ==
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
[2016-08-09] MEDS ORDERED: HYDROcodone/ACETAMINOPHEN 1 EACH TABLET PO ONE (13:11)
[2016-08-09] MEDS ORDERED: HYDROcodone/ACETAMINOPHEN 1 EACH TABLET ONE (13:12)
[2016-08-09 14:27] VITALS: BP 129/77
== END 2016-08-09 14:33 | disposition home or self-care (01) ==
LOC: ER 12:11
DX: M54.2 Cervicalgia (principal); Z85.41 Personal history of malignant neoplasm of cervix uteri; W07.XXXA Fall from chair, initial encounter; Y93.9 Activity, unspecified; Y92.009 Unspecified place in unspecified non-institutional (private) residence as the place of occurrence of the external cause; F41.8 Other specified anxiety disorders; F31.70 Bipolar disorder, currently in remission, most recent episode unspecified; E11.9 Type 2 diabetes mellitus without complications; K21.9 Gastro-esophageal reflux disease without esophagitis; I10 Essential (primary) hypertension; E78.5 Hyperlipidemia, unspecified

== ENCOUNTER 2016-08-10 20:01 | Emergency (ER) | payer OTHER ==
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
[2016-08-11] MEDS ORDERED: PROCHLORPERAZINE EDISYLATE 5 MG/ML VIAL IV ONE (01:23)
[2016-08-11] MEDS ORDERED: PROCHLORPERAZINE EDISYLATE 5 MG/ML VIAL ONE (01:26)
[2016-08-11 01:33] VITALS: BP 119/77
== END 2016-08-11 01:50 | disposition home or self-care (01) ==
LOC: ER 20:01
DX: R51 Headache (principal); Z87.891 Personal history of nicotine dependence; W19.XXXD Unspecified fall, subsequent encounter; I25.2 Old myocardial infarction; Z86.718 Personal history of other venous thrombosis and embolism; Z79.01 Long term (current) use of anticoagulants; R56.9 Unspecified convulsions; F31.9 Bipolar disorder, unspecified; I10 Essential (primary) hypertension

== ENCOUNTER 2016-08-13 15:38 | Emergency (ER) | payer OTHER ==
--- OUTSIDE RECORDS SUMMARY | 2016-08-13 16:08 | XMS REPORT | Continuity of Care Document ---
:1975 Author Organization [facility] ([facility]) Address [address] [place] [address] Phone [phone] Care Team Providers Name Role Phone Daisy Coles Primary Care Provider [phone] Source Comments This disclosure is being made pursuant to the Care Everywhere program, applicable federal and state laws, and may not contain all informaitonavailable regarding this patient.[facility] ([facility]) Active Allergies and Adverse Reactions Allergen Noted Date Severity Reactions Comments Ciprofloxacin 08/12/2016 Rash Flu Vaccine 2010 (36 Mos+)(Pf) 08/12/2016 Rash Latex 08/12/2016 Rash Metformin 08/12/2016 OTHER Unknown Pantoprazole 08/12/2016 Urticaria (Hives) Penicillins 08/12/2016 Urticaria (Hives) Sulfa (Sulfonamide Antibiotics) 08/12/2016 Anaphylaxis Current Medications Prescription Sig. Disp. Refills Start Date End Date Status amitriptyline 25 mg Take 25 mg by mouth Active tablet at bedtime. clonazePAM 2 mg tablet Take 2 mg by mouth Active at bedtime. venlafaxine 75 mg XR Take 75 mg by mouth Active capsule daily. gabapentin 600 mg tablet Take 600 mg by mouth Active 3 times daily. hydroCHLOROthiazide 25 mg Take 25 mg by mouth Active tablet daily. insulin glargine (LanTUS Inject 10 Units Active SOLOSTAR) 100 unit/mL (3 subcutaneously at mL) injection pen bedtime. dabigatran (praDAXA) 150 Take 150 mg by mouth Active mg capsule 2 times daily. QUEtiapine 100 mg tablet Take 100 mg by mouth Active at bedtime. raNITIdine 150 mg tablet Take 150 mg by mouth Active 2 times daily. budesonide-formoterol Use 2 Puffs by Active (SYMBICORT) 80-4.5 inhalation 2 times mcg/Actuation inhaler daily. topiramate 50 mg tablet Take 50 mg by mouth Active at bedtime. albuterol 90 Use 2 Puffs by Active mcg/Actuation inhaler inhalation 2 times daily. zolpiDEM 10 mg tablet Take by mouth at Active bedtime as needed. levETIRAcetam 500 mg Take 500 mg by mouth Active tablet 2 times daily. Active Problems Not on file Most Recent Encounters Date Type Specialty Providers Description 08/12/2016 - Hospital Encounter Emergency Medicine Nick Sawyer, Dx: Dizziness 08/13/2016 (Primary Dx) 08/12/2016 Nurse Triage Patient Services Chief Faizan Comp: Moises Dyer RN Mental Status Social History Tobacco Use Types Packs/Day Years Used Date Former Smoker Alcohol Use Drinks/Week oz/Week Comments No Last Filed Vital Signs Vital Sign Reading Time Taken Blood Pressure 125/93 08/12/2016 7:16 PM CDT Pulse 98 08/12/2016 7:16 PM CDT Temperature 37.2 C (99 F) 08/12/2016 7:16 PM CDT Respiratory Rate 16 08/12/2016 7:16 PM CDT Height - - Weight - - Body Mass Index - - Oxygen Saturation 97% 08/12/2016 7:16 PM CDT Plan of Care Health Maintenance Due Date Last Done Comments Hepatitis B Vaccine (1 of 3 - Primary Series) 1975 Tdap Vaccine 1986 Lipid Disorder Screening 1993 MMR Vaccine 1993 Td Vaccine 1993 Cervical Cancer Screening 2005 Mammogram 2015 Results from Last 3 Months MRI BRAIN W/WO CONTRAST (26960) (08/12/2016 11:01 PM) Impressions Impression: Normal MRI brain. This final report is in agreement with the critical and emergent preliminary findings reported by the vice president tax research environmental engineer. Narrative Procedure: MRI BRAIN W/WO CONTRAST (32861) Indication: Dizziness for one month. Rule out posterior circulation stroke. Technique: Multisequence, multiplanar MRI of the brain before and after the uneventful administration of 11.8 mL Gadavist IV contrast. Comparison: None Findings: There is no acute infarct, intracranial mass, or intra or extra-axial hemorrhage. There is no pathologic enhancement. The ventricles, cortical sulci and basal cisterns are symmetric and appropriate. Normal brainstem and posterior fossa. The pituitary and suprasellar region are unremarkable. The major intracranial flow-voids are preserved. Normal orbits. The paranasal sinuses and mastoid air cells are clear. Normal bone marrow signal. Procedure Note Vinicius, Incoming Imaging Results - [place] Aug 13, 2016 10:45 AM CDT Procedure: MRI BRAIN W/WO CONTRAST ([id number]) Indication: Dizziness for one month. Rule out posterior circulation stroke. Technique: Multisequence, multiplanar MRI of the brain before and after the uneventful administration of 11.8 mL Gadavist IV contrast. Comparison: None Findings: There is no acute infarct, intracranial mass, or intra or extra-axial hemorrhage. There is no pathologic enhancement. The ventricles, cortical sulci and basal cisterns are symmetric and appropriate. Normal brainstem and posterior fossa. The pituitary and suprasellar region are unremarkable. The major intracranial flow-voids are preserved. Normal orbits. The paranasal sinuses and mastoid air cells are clear. Normal bone marrow signal. IMPRESSION Impression: Normal MRI brain. This final report is in agreement with the critical and emergent preliminary findings reported by the vice president tax research environmental engineer. BASIC METABOLIC PANEL W/ CALCIUM (CHEM 8) (08/12/2016 9:41 PM) Component Value Range Sodium 141 135-145 mEq/L Potassium 3.1(L) 3.5-5.0 mEq/L Chloride 100 95-107 mEq/L CO2 26 22-29 mEq/L BUN 9(L) 10-20 mg/dL Creatinine 0.7Comment: 0.5-1.0 mg/dL Creatinine switched to enzymatic method on 07/19/2010.GFR equation switched to IDMS-traceable MDRD equation on 07/19/2010. Calculated GFR values are not valid in clinical settings where serum creatinine is changing. Glucose 89Comment: 65-99 mg/dL The Expert Committee on the Diagnosis and Classification of Diabetes has defined impaired fasting glucose as greater than or equal to 100 mg/dL but less than 126 mg/dL.(Diabetes Care 28 (Suppl 1)S41,2005) Calcium 8.7 8.5-10.5 mg/dL Anion Gap 15 <17 mEq/L Calculated GFR >90 >60 mL/min/1.73 m2 Specimen Blood BLOOD GLUCOSE, BEDSIDE (08/12/2016 7:28 PM) Component Value Range Glucose, Accu-Chek 99 65-99 mg/dL Specimen Blood, capillary
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
[2016-08-13 16:22] LABS: Hematocrit 38.3 % (37.0-47.0); Hemoglobin 12.8 gm/dL (12.5-16.0); Mean Cell Volume 86.1 fl (78-100); Mean Corpuscular Hemoglobin 28.8 pg (27-31); Mean Corpuscular Hgb Conc 33.4 g/dl (32-36); Mean Platelet Volume 9.2 fl (6.0-9.5); Neutrophil # 7.5 K/mm3 (1.3-6.0); Neutrophil % 62.2 % (42-75.0); Platelet Count 303 K/mm3 (150-450); Red Blood Count 4.45 M/mm3 (4.2-5.4); Red Cell Distribution Width 13.1 % (11.5-14.0)
[2016-08-13 16:35] LABS: Albumin * 3.2 gm/dl (3.4-5.0); BUN/Creatinine Ratio 12.8 (9.0-21.6); Bilirubin, Total 0.2 mg/dL (0.0-1.1); Ca. Corrected For Albumin 8.9 mg/dL (8.4-10.2); Calcium * 8.6 mg/dL (7.9-10.9); Carbon Dioxide 28.1 mmol/L (24-32.6); Potassium 3.1 mmol/L (3.4-4.6); Total Protein 7.9 gm/dL (6.2-8.2)
[2016-08-13] MEDS ORDERED: ACETAMINOPHEN 500 MG TABLET PO ONE (16:48)
[2016-08-13 16:49] LABS: Cocaine Ur Negative (NEGATIVE); Urine Barbiturate Negative (NEGATIVE); Urine Benzodiazepines Negative (NEGATIVE); Urine Opiates Negative (NEGATIVE); Urine PCP Negative (NEGATIVE); Urine THC Negative (NEGATIVE)
[2016-08-13 16:51] LABS: Urine Appearance Clear; Urine Bacteria None Seen; Urine Bilirubin Negative (NEGATIVE); Urine Blood Negative /ul (NEGATIVE); Urine Color Yellow; Urine Ketone Negative (NEGATIVE); Urine Nitrite Negative (NEGATIVE); Urine Protein Negative (NEGATIVE); Urine RBC None Seen /hpf (0-5); Urine Urobilinogen Normal (NORMAL); Urine WBC None Seen /hpf (0-5); Urine pH 7.5 pH (5.0-7.0)
[2016-08-13] MEDS ORDERED: POTASSIUM CHLORIDE 20 MEQ TABLET.SA PO ONE (17:10)
[2016-08-13] MEDS ORDERED: POTASSIUM CHLORIDE 20 MEQ TABLET.SA ONE (17:10)
[2016-08-13 17:20] VITALS: BP 155/96
== END 2016-08-13 17:22 | disposition home or self-care (01) ==
LOC: ER 15:38
DX: E87.6 Hypokalemia (principal); Z91.14 Patient's other noncompliance with medication regimen; W06.XXXA Fall from bed, initial encounter; S80.12XA Contusion of left lower leg, initial encounter; Z85.41 Personal history of malignant neoplasm of cervix uteri; F41.8 Other specified anxiety disorders; F31.70 Bipolar disorder, currently in remission, most recent episode unspecified; G89.29 Other chronic pain; E11.9 Type 2 diabetes mellitus without complications; K21.9 Gastro-esophageal reflux disease without esophagitis; I10 Essential (primary) hypertension; E78.5 Hyperlipidemia, unspecified

== ENCOUNTER 2016-08-14 20:01 | Emergency (ER) | payer OTHER ==
--- OUTSIDE RECORDS SUMMARY | 2016-08-14 20:25 | XMS REPORT | Continuity of Care Document ---
:1975 Author Organization [facility] ([facility]) Address [address] [place] [address] Phone [phone] Care Team Providers Name Role Phone Daisy Coles Primary Care Provider [phone] Source Comments This disclosure is being made pursuant to the Care Everywhere program, applicable federal and state laws, and may not contain all informaitonavailable regarding this patient.[facility] ([facility]) Active Allergies and Adverse Reactions Allergen [...] Last 3 Months MRI BRAIN W/WO CONTRAST ([id number]) (08/12/2016 11:01 PM) Impressions Impression: Normal MRI brain. This final report is in agreement with the critical and emergent preliminary findings reported by the technical operations vice president construction person. Narrative Procedure: MRI BRAIN W/WO CONTRAST ([id number]) Indication: Dizziness for one month. Rule out [...] Procedure Note Vinicius, Incoming Imaging Results - [place] Aug 13, 2016 10:45 AM CDT Procedure: MRI BRAIN W/WO CONTRAST ([id number]) Indication: Dizziness for one month. Rule out [...] and emergent preliminary findings reported by the technical operations vice president construction person. BASIC METABOLIC PANEL W/ CALCIUM (CHEM 8) [...]
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
[2016-08-14 20:50] VITALS: BP 124/79
== END 2016-08-14 20:44 | disposition home or self-care (01) ==
LOC: ER 20:01
DX: S80.12XA Contusion of left lower leg, initial encounter (principal); W06.XXXS Fall from bed, sequela; F41.8 Other specified anxiety disorders; F31.70 Bipolar disorder, currently in remission, most recent episode unspecified; G89.29 Other chronic pain; E11.9 Type 2 diabetes mellitus without complications; K21.9 Gastro-esophageal reflux disease without esophagitis; I10 Essential (primary) hypertension; E78.5 Hyperlipidemia, unspecified